=== PATIENT | female | born 1965 | race American Indian/Alaskan Native ===

== ENCOUNTER 2017-01-15 09:08 | Emergency (ER) | payer MEDICARE, OTHER ==
[2017-01-15] MEDS ORDERED: Apap-Butalbital-Caffeine 325-50-40mg Tab ONE (11:27)
== END 2017-01-15 11:40 | disposition home or self-care (01) ==
LOC: C.ER 09:08
DX: R51 Headache (principal)

== ENCOUNTER 2017-03-16 15:42 | Emergency (ER) | payer MEDICARE, OTHER ==
[2017-03-16 15:56] VITALS: BP 130/86; PULSE 81; RESP 20; TEMP 97.6; O2SAT 100
--- NOTE | 2017-03-16 16:44 | C.PDOC ---
History Of Present Illness 51 y/o female, with past medial history of seizure taking Keppra, and Depakote, presents to the emergency department for evaluation of episode of 2 witnessed seizures at her PMD office. States that she is complaint with her meds. Notes last seizure episode was 2 months ago. At bedside, pt denies any complaints, and states she feels "great". Pt denies getting any type of blood work, or imaging done here in the ER and would like to be discharged home. Time Seen by Provider: 03/16/17 15:52 Chief Complaint (Nursing): Seizure History Per: Patient History/Exam Limitations: no limitations Number Of Seizures: Multiple (2) Length Of Seizures (Duration): Unknown Severity: None Pain Scale Rating Of: 0 Additional History Per: EMS (blood sugar level was normal) Past Medical History Reviewed: Historical Data, Nursing Documentation, Vital Signs Vital Signs: Last Vital Signs Temp 97.6 F 03/16/17 15:48 Pulse 81 03/16/17 15:48 Resp 20 03/16/17 15:48 BP 130/86 03/16/17 15:48 Pulse Ox 100 03/16/17 16:59 - Medical History PMH: HTN, Seizures, TIA Denies: Chronic Kidney Disease Surgical History: Appendectomy, Tonsillectomy - [facility] Procedures INSERTION OF INFUSION DEV INTO SUP VENA CAVA, PERC APPROACH (10/23/15) Family History: States: Unknown Family Hx - Social History Hx Tobacco Use: No Hx Alcohol Use: No Hx Substance Use: No - Immunization History Hx Tetanus Toxoid Vaccination: No Hx Influenza Vaccination: No Hx Pneumococcal Vaccination: No Review Of Systems Except As Marked, All Systems Reviewed And Found Negative. Constitutional: Negative for: Fever, Chills Cardiovascular: Negative for: Chest Pain, Palpitations Respiratory: Negative for: Cough, Shortness of Breath Gastrointestinal: Negative for: Nausea, Vomiting, Abdominal Pain Neurological: Positive for: Seizures. Negative for: Weakness, Numbness, Headache, Dizziness Physical Exam - Physical Exam Appears: Non-toxic, No Acute Distress Skin: Normal Color, Warm, Dry Head: Atraumatic, Normacephalic Eye(s): bilateral: Normal Inspection Neck: Normal ROM, Supple Chest: Symmetrical Cardiovascular: Rhythm Regular, No Murmur Respiratory: Normal Breath Sounds, No Rales, No Rhonchi, No Wheezing Extremity: No Deformity, Other (chronic left side 4/5 weakness) Extremity: Bilateral: Atraumatic Neurological/Psych: Oriented x3, Normal Speech, Normal Cognition ED Course And Treatment O2 Sat by Pulse Oximetry: 100 Pulse Ox Interpretation: Normal Medical Decision Making Medical Decision Making: The patient declines to have further medical evaluation and treatment and wishes to leave the Emergency Department. This action is against my medical advice to the patient, and with informed refusal. The patient was told that evaluation and treatment are necessary and a full explanation of the rationale was given. The risks of leaving were explained to the patient and include, but are not limited to, worsening of known or currently unknown conditions, permanent disability and from undiagnosed or untreated conditions The patient has the capacity to make this informed decision and understands the clinical situation and my explanation of the risks of leaving. The patient voluntarily accepts these risks, and a signed AMA form documenting our conversation was obtained. The patient was given the opportunity to ask questions and reconsider. The patient was encouraged to return to the Emergency Department at any time for further care. pt on arrival, oriented x 3, at [facility]. refues labs, imaging, requesting immediate d/c. discussed risks, pt understands. signs ama Disposition - Disposition Referrals: Counts Include [facility] [Outside] [facility] [Outside] Gloria Augustin MD [Staff Provider] - Disposition: AGAINST MEDICAL ADVICE Disposition Time: 04:00 Condition: GOOD Additional Instructions: you are refusing workup in the er. you are able to return at any time with any concern. do not drive, avoid heights, or heavy machinery, or any situation that could be harmful with a seizure Instructions: Against Medical Advice (ED), Recurrent Seizures in Adults (ED) - Clinical Impression Clinical Impression: Seizure - Scribe Statement The provider has reviewed the documentation as recorded by the Phuongibe Dann Hassan All medical record entries made by the Phuongibe were at my direction and personally dictated by me. I have reviewed the chart and agree that the record accurately reflects my personal performance of the history, physical exam, medical decision making, and the department course for this patient. I have also personally directed, reviewed, and agree with the discharge instructions and disposition.
== END 2017-03-16 16:19 | disposition left against medical advice (07) ==
LOC: C.ER 15:42
DX: G40.909 Epilepsy, unspecified, not intractable, without status epilepticus (principal)

== ENCOUNTER 2017-03-30 15:36 | Emergency (ER) | payer MEDICARE, OTHER ==
[2017-03-30 15:43] VITALS: BP 148/80; PULSE 102; RESP 12; TEMP 97.3; O2SAT 100
--- NOTE | 2017-03-30 15:52 | C.PDOC ---
History Of Present Illness 52 y/o female with Hx of Seizures brought to ED by Rapid Response from OP MRI for seizure episode. Patient states she did not take her seizure medicine this morning for unknown reason. At ED patient is sedated but responsive. No other complaints at this time. Chief Complaint (Nursing): Seizure History Per: Patient History/Exam Limitations: no limitations Recent Seizure Activity Began: Just Before Arrival Number Of Seizures: One Past Medical History Reviewed: Historical Data, Nursing Documentation, Vital Signs Vital Signs: Last Vital Signs Temp 97.3 F L 03/30/17 16:07 Pulse 102 H 03/30/17 16:07 Resp 12 03/30/17 16:07 BP 148/80 03/30/17 16:07 Pulse Ox 100 03/30/17 15:55 - Medical History PMH: HTN, Seizures, TIA Surgical History: Appendectomy, Tonsillectomy - [facility] Procedures INSERTION OF INFUSION DEV INTO SUP VENA CAVA, PERC APPROACH (10/23/15) Family History: States: Unknown Family Hx - Social History Hx Tobacco Use: No Hx Alcohol Use: No Hx Substance Use: No - Immunization History Hx Tetanus Toxoid Vaccination: No Hx Influenza Vaccination: No Hx Pneumococcal Vaccination: No Review Of Systems Except As Marked, All Systems Reviewed And Found Negative. Constitutional: Negative for: Fever, Chills Gastrointestinal: Negative for: Nausea, Vomiting, Diarrhea Skin: Negative for: Rash Neurological: Positive for: Seizures Physical Exam - Physical Exam Appears: In Acute Distress Skin: Warm Head: Atraumatic, Normacephalic Eye(s): bilateral: EOMI Oral Mucosa: Moist Gastrointestinal/Abdominal: Soft, No Tenderness, No Guarding, No Rebound, Other (Obese abdomen) Neurological/Psych: Oriented x3, Normal Speech, Normal Cognition ED Course And Treatment - Laboratory Results Result Diagrams: 03/30/17 16:21 03/30/17 16:21 Lab Interpretation: Abnormal (dilantin level neg) O2 Sat by Pulse Oximetry: 100 (RA) Pulse Ox Interpretation: Normal Progress Note: 1615: pt got up from strecher wide awake and immediatly began clothing herself, wanting to leave ED immediately Disposition Doctor Will See Patient In The: Office Counseled Patient/Family Regarding: Studies Performed, Diagnosis - Disposition Disposition: AGAINST MEDICAL ADVICE Disposition Time: 16:00 Condition: GOOD Forms: [employer] Messaging (Chinese) - Clinical Impression Clinical Impression: Seizure disorder - Scribe Statement The provider has reviewed the documentation as recorded by the Phuongibcarroll Sprague All medical record entries made by the Chauncey were at my direction and personally dictated by me. I have reviewed the chart and agree that the record accurately reflects my personal performance of the history, physical exam, medical decision making, and the department course for this patient. I have also personally directed, reviewed, and agree with the discharge instructions and disposition.
--- NOTE | 2017-03-30 16:07 | PCM.RRTMUL ---
TRACK TEMPLATE MAKER Nurses Assessment - Situation TRACK TEMPLATE MAKER Responder Arrival Time:: 03:39 TRACK TEMPLATE MAKER Reason for Call: Change in Mental Status - Vital Signs Blood Pressure:: 148/80 Pulse Rate:: 102 Respiratory Rate:: 12 Temperature:: 97.3 F I.Reason for TRACK TEMPLATE MAKER - A) Acute Change in Patient: (Select all that apply): Acute change in mental status - Constitutional Appears: Other (altered) - Head Head Exam: ATRAUMATIC, NORMAL INSPECTION - Eyes Eye Exam: EOMI - Respiratory Exam Respiratory Exam: Clear to Ausculation Bilateral, NORMAL BREATHING PATTERN - Cardiovascular Exam Cardiovascular Exam: REGULAR RHYTHM, +S1, +S2 - GI/Abdominal Exam GI & Abdominal Exam: Soft, Normal Bowel Sounds. absent: Distended, Firm, Guarding, Tenderness - Neurological Exam Neurological Exam: Awake. absent: Alert, Oriented x3 Plan - B. Assessment of Findings&Treatment Plan TRACK TEMPLATE MAKER called in MRI due to altered mental status and "seizure". Patent was having an MRI of the shoulder when a rapid was called for seizure. Patient was altered and confused but was able to speak. Per family member with patient stated she has a history of seizures but did not take her medications today. She was transferred to the ED immediately for further management. Dr. Chung took over care.
[2017-03-30 16:28] LABS: BASO % 0.4 % (0.0-2.0); EOS # 0.2 K/uL (0.0-0.7); EOS % 2.9 % (0.0-4.0); HEMOGLOBIN 12.9 g/dL (11.0-16.0); LYMPH # 2.2 K/uL (1.0-4.3); LYMPH % 35.7 % (20.0-40.0); MEAN CORPUSCULAR HEMOGLOBIN 28.6 pg (27.0-31.0); MEAN CORPUSCULAR HGB CONC 33.1 g/dL (33.0-37.0); MEAN PLATELET VOLUME 8.8 fL (7.2-11.7); MONO # 0.7 K/uL (0.0-0.8); MONO % 11.8 % (0.0-10.0); NEUT % 49.2 % (50.0-75.0); NRBC % 0.1 % (0.0-2.0); RBC 4.51 Mil/uL (3.80-5.20); WHITE BLOOD COUNT 6.1 K/uL (4.8-10.8)
[2017-03-30 16:30] LABS: MEAN CELL VOLUME 86.3 fL (81.0-99.0)
[2017-03-30 16:35] LABS: ALBUMIN 4.5 g/dL (3.5-5.0)
[2017-03-30 16:38] LABS: ALB/GLOB RATIO 1.1 (1.0-2.1); AST/SGOT 36 U/L (14-36); GFR AFRICAN-AMERICAN > 60; GFR NON-AFRICAN AMERICAN > 60
[2017-03-30 16:39] LABS: ALT/SGPT 8 U/L (9-52); BLOOD UREA NITROGEN 18 mg/dL (7-17); CALCIUM 9.2 mg/dl (8.6-10.4)
--- NOTE | 2017-03-31 19:24 | CARD ---
APPROVED REPORT EKG Measurement Heart [id number] <Conclusion> Normal sinus rhythm Septal infarct, age undetermined Abnormal ECG
== END 2017-03-30 16:19 | disposition left against medical advice (07) ==
LOC: C.ER 15:36
DX: G40.909 Epilepsy, unspecified, not intractable, without status epilepticus (principal)
CPT/HCPCS: 80053; 80185; 85025; 93005; 99285; G0480

== ENCOUNTER 2017-11-25 17:19 | Observation (INO) | payer MEDICARE, OTHER ==
[2017-11-25] MEDS ORDERED: Sodium Chloride 0.9% 1,000 ML IV ONE ×2 (17:56→19:56)
[2017-11-25 18:28] LABS: ALB/GLOB RATIO 1.1 (1.0-2.1); ALBUMIN 4.7 g/dL (3.5-5.0); CALCIUM 7.4 mg/dl (8.6-10.4); GFR AFRICAN-AMERICAN > 60; GFR NON-AFRICAN AMERICAN > 60
--- NOTE | 2017-11-25 18:32 | CT ---
PROCEDURE: CT HEAD WITHOUT CONTRAST. HISTORY: s/p seizure, left sided weakness/numbness. COMPARISON: Unenhanced head CT 10/24/2015 prior TECHNIQUE: Axial computed tomography images were obtained through the head/brain without intravenous contrast. Radiation dose: Total exam DLP = 749.28 mGy-cm. This CT exam was performed using one or more of the following dose reduction techniques: Automated exposure control, adjustment of the mA and/or kV according to patient size, and/or use of iterative reconstruction technique. FINDINGS: HEMORRHAGE: No intracranial hemorrhage. BRAIN: Normal knott-white matter differentiation and density are appreciated throughout the cerebrum and cerebellum with the brainstem appearing unremarkable as well. There is no mass effect. There is no suspicious extra-axial fluid collection and the midline brain anatomy appears diffusely unremarkable. VENTRICLES: Unremarkable. No hydrocephalus. CALVARIUM: No destructive bony lesion or displaced fracture identified including through the skullbase. PARANASAL SINUSES: Unremarkable as visualized. No significant inflammatory changes. MASTOID AIR CELLS: Unremarkable as visualized. No inflammatory changes. OTHER FINDINGS: None. IMPRESSION: Stable unremarkable unenhanced head CT as discussed above. Follow-up CT or MRI is available if clinically warranted.
[2017-11-25 18:44] LABS: ALT/SGPT 9 U/L (9-52); AST/SGOT 25 U/L (14-36); BLOOD UREA NITROGEN 22 mg/dL (7-17)
[2017-11-25 18:50] LABS: BASO % 0.3 % (0.0-2.0); EOS # 0.1 K/uL (0.0-0.7); EOS % 1.5 % (0.0-4.0); HEMOGLOBIN 8.5 g/dL (11.0-16.0); INR 1.5; LYMPH # 1.2 K/uL (1.0-4.3); LYMPH % 30.5 % (20.0-40.0); MEAN CELL VOLUME 86.3 fL (81.0-99.0); MEAN CORPUSCULAR HEMOGLOBIN 27.9 pg (27.0-31.0); MEAN CORPUSCULAR HGB CONC 32.4 g/dL (33.0-37.0); MEAN PLATELET VOLUME 8.8 fL (7.2-11.7); MONO # 0.5 K/uL (0.0-0.8); MONO % 12.5 % (0.0-10.0); NEUT # 2.1 K/uL (1.8-7.0); NEUT % 55.2 % (50.0-75.0); NRBC % 0.3 % (0.0-2.0); PROTHROMBIN TIME 16.5 SECONDS (9.7-12.2); RBC 3.03 Mil/uL (3.80-5.20); RED CELL DISTRIBUTION WIDTH 14.9 % (11.5-14.5); WHITE BLOOD COUNT 3.8 K/uL (4.8-10.8)
[2017-11-25 19:26] LABS: FREE T4 1.09 ng/dL (0.78-2.19)
[2017-11-25 19:44] LABS: SQUAMOUS EPITHIAL 4 /hpf (0-5); URINE BILIRUBIN NEGATIVE (NEGATIVE); URINE BLOOD 1+ (NEGATIVE); URINE CLARITY Hazy (Clear); URINE COLOR Yellow (YELLOW); URINE GLUCOSE (UA) NORMAL (Normal); URINE LEUKOCYTE ESTERASE NEG Leu/uL (Negative); URINE PROTEIN NEGATIVE (NEGATIVE); URINE UROBILINOGEN NORMAL mg/dL (0.2-1.0)
[2017-11-25] MEDS ORDERED: Divalproex 500 mg DR Tab PO STA (19:56)
[2017-11-25 20:00] LABS: BARBITURATES, UR NEGATIVE (NEGATIVE); BENZODIAZEPINES, UR NEGATIVE (NEGATIVE); OPIATES, UR NEGATIVE (NEGATIVE); PHENCYCLIDINE, UR NEGATIVE (NEGATIVE)
--- NOTE | 2017-11-25 20:27 | CP.PCM.HP ---
<Volodymyr Szymanskissatul Zhu - Last Filed: 11/25/17 22:48> History of Present Illness - History of Present Illness History of Present Illness: Code Status: Full Code If patient cannot make decisions patient would like sister Amy Ortiz to be contacted # [phone] CC: "Right eye droop" HPI: 52 year old female with past medical history of seizure disorder, HTN, thyroid nodules presents to the ER for right eye droop and left facial numbness. Patient states she noticed the right eye droop yesterday when her homemaker arrived between the hours of 1-4pm. She denies eye pain or eye discharge. She states the left facial numbness is only in the cheek and half of her lip area. She states it feels like she just went to the dentist. She states this has never occurred before. She states the left sided numbness started today in the afternoon. She states she was told she had a seizure on the way to the hospital in the ambulance. Her most recent seizure prior was last Thursday. She states she does take her medications daily. She also states she has been feeling short of breath for about 2 months. She spoke to her PMD and patient states it may be due to her thyroid nodules. She does not use pillows to sleep and she can sleep flat without a distress. She states when she goes up the stairs she has to stop half way to catch her breath. Patient denies chest pain, palpitations, headache, lightheadedness, dizziness, nausea or vomiting. PMD: Dr. Lm Romero Neurologist: Dr Gloria Augustin Cardio: Dr. 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 absent: Chills, Fever, Headache - EENT Eyes: absent: Blurred Vision - Cardiovascular Cardiovascular: Dyspnea. absent: Chest Pain, Palpitations, Pedal Edema - Respiratory Respiratory: Dyspnea, Dyspnea on Exertion. absent: Cough - Gastrointestinal Gastrointestinal: absent: Constipation, Diarrhea, Nausea, Vomiting - Genitourinary Genitourinary: absent: Dysuria - Musculoskeletal Musculoskeletal: Muscle Weakness, Numbness. absent: Tingling - Neurological Neurological: Numbness, Weakness. absent: Disequilibrium, Dizziness, Headaches , Loss of Vision Past Patient History - Infectious Disease Hx of Infectious Diseases: None - Past Medical History & Family History Past Medical History?: Yes - Past Social History Smoking Status: Never Smoked - CARDIAC Hx Hypertension: Yes - PULMONARY Hx Respiratory Disorders: No Other/Comment: "MASS IN THROAT" - NEUROLOGICAL Hx Seizures: Yes - HEENT Hx HEENT Problems: No - RENAL Hx Chronic Kidney Disease: No - HEMATOLOGICAL/ONCOLOGICAL Hx Blood Transfusions: No - INTEGUMENTARY Hx Dermatological Problems: No - MUSCULOSKELETAL/RHEUMATOLOGICAL Hx Falls: Yes - GASTROINTESTINAL Hx Gastrointestinal Disorders: No - GENITOURINARY/GYNECOLOGICAL Hx Genitourinary Disorders: No - PSYCHIATRIC Hx Psychophysiologic Disorder: No Hx Substance Use: No - SURGICAL HISTORY Hx Appendectomy: Yes Hx Hysterectomy: Yes Hx Tonsillectomy: Yes - ANESTHESIA Hx Anesthesia: Yes Hx Anesthesia Reactions: No Meds Allergies/Adverse Reactions: Allergies Allergy/AdvReac Type Severity Reaction Status Date / Time Iodinated Contrast- Oral and Allergy Verified 11/25/17 17:41 IV Dye metronidazole [From Flagyl] Allergy SWELLING Verified 11/25/17 17:41 iv dye Allergy Uncoded 11/25/17 17:41 Physical Exam - Constitutional Appears: No Acute Distress, Older Than Stated Age - Head Exam Head Exam: ATRAUMATIC, NORMAL INSPECTION - Eye Exam Eye Exam: EOMI, PERRL Pupil Exam: NORMAL ACCOMODATION Additional comments: Right eye droop - ENT Exam ENT Exam: Mucous Membranes Moist - Neck Exam Neck exam: Positive for: Thyromegaly (thryroid nodules ). Negative for: Tenderness - Respiratory Exam Respiratory Exam: Clear to Auscultation Bilateral, NORMAL BREATHING PATTERN. absent: Rales, Rhonchi, Wheezes, Stridor - Cardiovascular Exam Cardiovascular Exam: REGULAR RHYTHM, RRR, +S1, +S2. absent: JVD - GI/Abdominal Exam GI & Abdominal Exam: Normal Bowel Sounds, Soft. absent: Tenderness - Extremities Exam Extremities exam: Positive for: normal inspection. Negative for: pedal edema, tenderness - Neurological Exam Neurological exam: Alert, Normal Gait, Oriented x3 - Expanded Neurological Exam Expanded Patient oriented to: person, place, time Cranial nerves: EOM's Intact: Normal, Facial Sensation: Abnormal Left Sensory exam: Lower Extremity Light Touch: Normal, Upper Extremity Light Touch: Normal Neuro motor strength exam: Left Upper Extremity: 4, Right Upper Extremity: 5, Left Lower Extremity: 4, Right Lower Extremity: 5 Coma Scale Eye Opening: SPONTANEOUS Coma Scale Motor Response: OBEYS COMMANDS Coma Scale Verbal: Oriented Coma Scale Total: 15 - Psychiatric Exam Psychiatric exam: Normal Affect, Normal Mood - Skin Skin Exam: Dry, Intact, Normal Color Results - Vital Signs Recent Vital Signs: Last Vital Signs Temp 97.6 F 11/25/17 17:31 Pulse 92 H 11/25/17 19:25 Resp 18 11/25/17 19:25 BP 137/98 H 11/25/17 19:25 Pulse Ox 100 11/25/17 19:25 - Labs Result Diagrams: 11/25/17 18:40 11/25/17 18:06 Labs: Laboratory Results - last 24 hr 11/25/17 11/25/17 11/25/17 18:06 18:06 18:06 WBC RBC Hgb Hct MCV MCH MCHC RDW Plt Count MPV Neut % (Auto) Lymph % (Auto) Woodward % (Auto) Eos % (Auto) Baso % (Auto) Neut # (Auto) Lymph # (Auto) Woodward # (Auto) Eos # (Auto) Baso # (Auto) PT INR APTT Sodium 144 Potassium 5.4 H Chloride 102 Carbon Dioxide 25 Anion Gap 23 H BUN 22 H Creatinine 0.5 L Est GFR ( Amer) > 60 Est GFR (Non-Af Amer) > 60 Random Glucose 95 Calcium 7.4 L Magnesium 2.0 Total Bilirubin 0.6 AST 25 ALT 9 D Alkaline Phosphatase 87 Troponin I < 0.0120 Total Protein 8.8 H Albumin 4.7 Globulin 4.1 H Albumin/Globulin Ratio 1.1 Free T4 1.09 TSH 3rd Generation 0.57 Urine Color Urine Clarity Urine pH Ur Specific Harriet Urine Protein Urine Glucose (UA) Urine Ketones Urine Blood Urine Nitrate Urine Bilirubin Urine Urobilinogen Ur Leukocyte Esterase Urine WBC (Auto) Urine RBC (Auto) Ur Squamous Epith Cells Urine Opiates Screen Urine Methadone Screen Ur Barbiturates Screen Valproic Acid 44.4 L Ur Phencyclidine Scrn Ur Amphetamines Screen U Benzodiazepines Scrn U Oth Cocaine Metabols U Cannabinoids Screen Alcohol, Quantitative < 10 11/25/17 11/25/17 11/25/17 18:40 18:40 19:38 WBC 3.8 L RBC 3.03 L Hgb 8.5 L D Hct 26.1 L MCV 86.3 MCH 27.9 MCHC 32.4 L RDW 14.9 H Plt Count 140 D MPV 8.8 Neut % (Auto) 55.2 Lymph % (Auto) 30.5 Woodward % (Auto) 12.5 H Eos % (Auto) 1.5 Baso % (Auto) 0.3 Neut # (Auto) 2.1 Lymph # (Auto) 1.2 Woodward # (Auto) 0.5 Eos # (Auto) 0.1 Baso # (Auto) 0.0 PT 16.5 H INR 1.5 APTT 33 Sodium Potassium Chloride Carbon Dioxide Anion Gap BUN Creatinine Est GFR ( Amer) Est GFR (Non-Af Amer) Random Glucose Calcium Magnesium Total Bilirubin AST ALT Alkaline Phosphatase Troponin I Total Protein Albumin Globulin Albumin/Globulin Ratio Free T4 TSH 3rd Generation Urine Color Yellow Urine Clarity Hazy Urine pH 6.0 Ur Specific Harriet 1.015 Urine Protein Negative Urine Glucose (UA) Normal Urine Ketones Trace Urine Blood 1+ H Urine Nitrate Negative Urine Bilirubin Negative Urine Urobilinogen Normal Ur Leukocyte Esterase Neg Urine WBC (Auto) 1 Urine RBC (Auto) 5 H Ur Squamous Epith Cells 4 Urine Opiates Screen Urine Methadone Screen Ur Barbiturates Screen Valproic Acid Ur Phencyclidine Scrn Ur Amphetamines Screen U Benzodiazepines Scrn U Oth Cocaine Metabols U Cannabinoids Screen Alcohol, Quantitative 11/25/17 19:38 WBC RBC Hgb Hct MCV MCH MCHC RDW Plt Count MPV Neut % (Auto) Lymph % (Auto) Woodward % (Auto) Eos % (Auto) Baso % (Auto) Neut # (Auto) Lymph # (Auto) Woodward # (Auto) Eos # (Auto) Baso # (Auto) PT INR APTT Sodium Potassium Chloride Carbon Dioxide Anion Gap BUN Creatinine Est GFR ( Amer) Est GFR (Non-Af Amer) Random Glucose Calcium Magnesium Total Bilirubin AST ALT Alkaline Phosphatase Troponin I Total Protein Albumin Globulin Albumin/Globulin Ratio Free T4 TSH 3rd Generation Urine Color Urine Clarity Urine pH Ur Specific Harriet Urine Protein Urine Glucose (UA) Urine Ketones Urine Blood Urine Nitrate Urine Bilirubin Urine Urobilinogen Ur Leukocyte Esterase Urine WBC (Auto) Urine RBC (Auto) Ur Squamous Epith Cells Urine Opiates Screen Negative Urine Methadone Screen Negative Ur Barbiturates Screen Negative Valproic Acid Ur Phencyclidine Scrn Negative Ur Amphetamines Screen Negative U Benzodiazepines Scrn Negative U Oth Cocaine Metabols Negative U Cannabinoids Screen Negative Alcohol, Quantitative Assessment & Plan - Assessment and Plan (Free Text) Assessment: 1.) Right Eye droop - Neuro Consult: Dr. Augustin - Neuro checks - Head CT: Stable unremarkable unenhanced head CT as discussed above. Follow- up CT or MRI is available if clinically warranted. - f/u brain MRI 2.) Chad's Palsy s/p Seizure - Decreased strength left upper and lower extremities - PT/OT 3.) History of Seizure Disorder - Neuro Consult: Dr. Augustin - Depakote 750mg bid - Keppra 500mg bid 4.) Shortness of breath - f/u Chest Xray - EKG: NSR - ECHO (10/24/15): EF >70% - f/u ECHO 5.) History of Thyroid Nodules - TSH .57; Free T4 1.09 6.) History of HTN - Continue Norvasc 5mg daily - Continue Losartan/HCTZ 50/12.5 daily - TSH .57; Free T4 1.09 7. Leukopenia - WBC: 3.9 - f/u HIV - f/u Hepatitis panel 8.) Anemia - H/H: 8.5/26.1 - f/u iron studies 9.) Prophylaxis - SCDs - PT/OT Case discussed with Dr. Elizabeth Szymanski PGY-1 <Raul Johnson - Last Filed: 11/26/17 06:23> Results - Vital Signs Recent Vital Signs: Last Vital Signs Temp 98.0 F 11/25/17 23:00 Pulse 115 H 11/25/17 23:30 Resp 20 11/25/17 23:00 BP 130/86 11/25/17 23:00 Pulse Ox 98 11/25/17 23:00 - Labs Result Diagrams: 11/25/17 18:40 11/25/17 18:06 Labs: Laboratory Results - last 24 hr 11/25/17 11/25/17 11/25/17 17:35 18:06 18:06 WBC RBC Hgb Hct MCV MCH MCHC RDW Plt Count MPV Neut % (Auto) Lymph % (Auto) Woodward % (Auto) Eos % (Auto) Baso % (Auto) Neut # (Auto) Lymph # (Auto) Woodward # (Auto) Eos # (Auto) Baso # (Auto) PT INR APTT Sodium 144 Potassium 5.4 H Chloride 102 Carbon Dioxide 25 Anion Gap 23 H BUN 22 H Creatinine 0.5 L Est GFR ( Amer) > 60 Est GFR (Non-Af Amer) > 60 POC Glucose (mg/dL) 86 Random Glucose 95 Calcium 7.4 L Magnesium 2.0 Total Bilirubin 0.6 AST 25 ALT 9 D Alkaline Phosphatase 87 Troponin I < 0.0120 Total Protein 8.8 H Albumin 4.7 Globulin 4.1 H Albumin/Globulin Ratio 1.1 Free T4 1.09 TSH 3rd Generation 0.57 Urine Color Urine Clarity Urine pH Ur Specific Harriet Urine Protein Urine Glucose (UA) Urine Ketones Urine Blood Urine Nitrate Urine Bilirubin Urine Urobilinogen Ur Leukocyte Esterase Urine WBC (Auto) Urine RBC (Auto) Ur Squamous Epith Cells Urine Opiates Screen Urine Methadone Screen Ur Barbiturates Screen Valproic Acid Ur Phencyclidine Scrn Ur Amphetamines Screen U Benzodiazepines Scrn U Oth Cocaine Metabols U Cannabinoids Screen Alcohol, Quantitative < 10 11/25/17 11/25/17 11/25/17 18:06 18:40 18:40 WBC 3.8 L RBC 3.03 L Hgb 8.5 L D Hct 26.1 L MCV 86.3 MCH 27.9 MCHC 32.4 L RDW 14.9 H Plt Count 140 D MPV 8.8 Neut % (Auto) 55.2 Lymph % (Auto) 30.5 Woodward % (Auto) 12.5 H Eos % (Auto) 1.5 Baso % (Auto) 0.3 Neut # (Auto) 2.1 Lymph # (Auto) 1.2 Woodward # (Auto) 0.5 Eos # (Auto) 0.1 Baso # (Auto) 0.0 PT 16.5 H INR 1.5 APTT 33 Sodium Potassium Chloride Carbon Dioxide Anion Gap BUN Creatinine Est GFR ( Amer) Est GFR (Non-Af Amer) POC Glucose (mg/dL) Random Glucose Calcium Magnesium Total Bilirubin AST ALT Alkaline Phosphatase Troponin I Total Protein Albumin Globulin Albumin/Globulin Ratio Free T4 TSH 3rd Generation Urine Color Urine Clarity Urine pH Ur Specific Harriet Urine Protein Urine Glucose (UA) Urine Ketones Urine Blood Urine Nitrate Urine Bilirubin Urine Urobilinogen Ur Leukocyte Esterase Urine WBC (Auto) Urine RBC (Auto) Ur Squamous Epith Cells Urine Opiates Screen Urine Methadone Screen Ur Barbiturates Screen Valproic Acid 44.4 L Ur Phencyclidine Scrn Ur Amphetamines Screen U Benzodiazepines Scrn U Oth Cocaine Metabols U Cannabinoids Screen Alcohol, Quantitative 11/25/17 11/25/17 19:38 19:38 WBC RBC Hgb Hct MCV MCH MCHC RDW Plt Count MPV Neut % (Auto) Lymph % (Auto) Woodward % (Auto) Eos % (Auto) Baso % (Auto) Neut # (Auto) Lymph # (Auto) Woodward # (Auto) Eos # (Auto) Baso # (Auto) PT INR APTT Sodium Potassium Chloride Carbon Dioxide Anion Gap BUN Creatinine Est GFR ( Amer) Est GFR (Non-Af Amer) POC Glucose (mg/dL) Random Glucose Calcium Magnesium Total Bilirubin AST ALT Alkaline Phosphatase Troponin I Total Protein Albumin Globulin Albumin/Globulin Ratio Free T4 TSH 3rd Generation Urine Color Yellow Urine Clarity Hazy Urine pH 6.0 Ur Specific Harriet 1.015 Urine Protein Negative Urine Glucose (UA) Normal Urine Ketones Trace Urine Blood 1+ H Urine Nitrate Negative Urine Bilirubin Negative Urine Urobilinogen Normal Ur Leukocyte Esterase Neg Urine WBC (Auto) 1 Urine RBC (Auto) 5 H Ur Squamous Epith Cells 4 Urine Opiates Screen Negative Urine Methadone Screen Negative Ur Barbiturates Screen Negative Valproic Acid Ur Phencyclidine Scrn Negative Ur Amphetamines Screen Negative U Benzodiazepines Scrn Negative U Oth Cocaine Metabols Negative U Cannabinoids Screen Negative Alcohol, Quantitative Assessment & Plan - Date & Time Date: 11/26/17 (I have seen and examined the patient. I agree with the findings and plan of care as documented by Dr. Szymanski. Patient with history of seizure and now with Chad's paralysis. Consult to Dr. Augustin. MRI brain in AM. PT/OT. Fall precautions. Continue home meds. Monitor for acute changes.) Time: 06:21 Attending/Attestation - Attestation I have personally seen and examined this patient.: Yes I have fully participated in the care of the patient.: Yes I have reviewed all pertinent clinical information: Yes
--- NOTE | 2017-11-25 20:38 | C.PDOC ---
History Of Present Illness Pt states that she was feeling left facial numbness/tingling, EMS were contacted and when they arrived pt had a generalized seizure. After seizure, pt is still having left facial numbness, but also LUE weakness. Pt states that she did not take her Depakote this morning. Time Seen by Provider: 11/25/17 17:44 Chief Complaint (Nursing): Seizure History Per: Patient, EMS Recent Seizure Activity Began: Just Before Arrival Number Of Seizures: One Length Of Seizures (Duration): Minutes Quality Of Seizure: Generalized Precipitating Factor(s): Missed Dose Of Anti-seizure Medication Post-ictal Period: Yes Severity: Moderate Additional History Per: Prior Records Past Medical History Reviewed: Historical Data, Nursing Documentation, Vital Signs Vital Signs: Last Vital Signs Temp 97.6 F 11/25/17 17:31 Pulse 92 H 11/25/17 19:25 Resp 18 11/25/17 19:25 BP 137/98 H 11/25/17 19:25 Pulse Ox 100 11/25/17 19:25 - Medical History PMH: CHF, HTN, Seizures, TIA Surgical History: Appendectomy, Tonsillectomy - [facility] Procedures INSERTION OF INFUSION DEV INTO SUP VENA CAVA, PERC APPROACH (10/23/15) Family History: States: Unknown Family Hx - Social History Hx Tobacco Use: No Hx Alcohol Use: No Hx Substance Use: No - Immunization History Hx Tetanus Toxoid Vaccination: No Hx Influenza Vaccination: No Hx Pneumococcal Vaccination: No Review Of Systems Except As Marked, All Systems Reviewed And Found Negative. Constitutional: Negative for: Fever Cardiovascular: Negative for: Chest Pain Respiratory: Negative for: Shortness of Breath Gastrointestinal: Negative for: Vomiting, Abdominal Pain, Melena, Hematochezia, Hematemesis Genitourinary: Negative for: Vaginal Bleeding Musculoskeletal: Negative for: Neck Pain Skin: Negative for: Rash Neurological: Positive for: Weakness (left arm), Numbness (left face), Seizures Physical Exam - Physical Exam Skin: Normal Color, Warm, Dry, No Rash Head: Atraumatic, Normacephalic Eye(s): bilateral: PERRL, EOMI, right: Other (ptosis) Neck: Normal ROM, Supple Cardiovascular: Rhythm Regular Respiratory: Normal Breath Sounds, No Accessory Muscle Use Gastrointestinal/Abdominal: Soft, No Tenderness Extremity: Normal ROM, No Deformity Neurological/Psych: Oriented x3, No Normal Motor (LUE weakness compared to right ), No Normal Sensation (decreased sensation of left face compared to right) ED Course And Treatment - Laboratory Results Result Diagrams: 11/25/17 18:40 11/25/17 18:06 Lab Interpretation: Abnormal Interpretation Of Abnormal: Subtherapeutic valproic acid. Anemia. Elevated BUN. ECG: Interpreted By Me, Viewed By Me ECG Rhythm: Sinus Rhythm, Nonspecific Changes ECG Interpretation: No Acute Changes Rate From EC O2 Sat by Pulse Oximetry: 100 Pulse Ox Interpretation: Normal - CT Scan/US CT head Other Rad Studies (CT/US): Read By Radiologist, Radiology Report Reviewed CT/US Interpretation: IMPRESSION: Stable unremarkable unenhanced head CT as discussed above. Follow-up CT or MRI is available if clinically warranted. Progress Note: Pt's LUE weakness has mostly improved, however pt still c/o left facial numbness. Reassessment Condition: Improved - Physician Consult Information Physician Contacted: Gloria Augustin (Neuro) Outcome Of Conversation: He recommended increasing Depakote dose to 750mg bid and keeping pt for observation in the hospital until all deficits have resolved. Progress - Interventions Interventions:: Observation, Intravenous fluid - Data Reviewed Data Reviewed: Lab, Diagnostic imaging, EKG, Old records - Patient Status Patient status: Partially improved - Continuity of Care Discussed patient case with:: Patient, ED Nurse, Covering for PMD Discussed pt. case with income tax consultant/specialty: Neurology Disposition Discussed With DrPamela: Raul Johnson Comment: He accepted pt on hospitalist service. Doctor Will See Patient In The: Hospital Counseled Patient/Family Regarding: Studies Performed, Diagnosis - Disposition Disposition: HOSPITALIZED Disposition Time: 20:44 Condition: GUARDED - Clinical Impression Clinical Impression: Chad's paralysis (postepileptic), Seizure
[2017-11-26 06:46] LABS: IRON 55 ug/dL (37-170)
[2017-11-26 06:53] LABS: ALB/GLOB RATIO 1.3 (1.0-2.1); ALBUMIN 4.2 g/dL (3.5-5.0); ALT/SGPT 10 U/L (9-52); AST/SGOT 22 U/L (14-36); BLOOD UREA NITROGEN 14 mg/dL (7-17); CALCIUM 9.1 mg/dl (8.6-10.4); GFR AFRICAN-AMERICAN > 60; GFR NON-AFRICAN AMERICAN > 60
[2017-11-26 06:55] LABS: % IRON SATURATION 19 (20-55); TOTAL IRON BINDING CAPACITY 297 ug/dL (250-450)
--- NOTE | 2017-11-26 07:11 | RAD ---
HISTORY: SOB COMPARISON: Chest radiographs 09/17/2017. TECHNIQUE: Chest PA and lateral FINDINGS: LUNGS: No active pulmonary disease. PLEURA: No significant pleural effusion identified. No pneumothorax apparent. CARDIOVASCULAR: Normal. OSSEOUS STRUCTURES: No significant abnormalities. VISUALIZED UPPER ABDOMEN: Normal. OTHER FINDINGS: None. IMPRESSION: No interval acute cardiopulmonary disease appreciated.
[2017-11-26 07:14] LABS: BASO % 0.4 % (0.0-2.0); EOS # 0.1 K/uL (0.0-0.7); EOS % 2.1 % (0.0-4.0); LYMPH # 2.4 K/uL (1.0-4.3); LYMPH % 38.7 % (20.0-40.0); MEAN CELL VOLUME 84.5 fL (81.0-99.0); MEAN CORPUSCULAR HEMOGLOBIN 28.4 pg (27.0-31.0); MEAN CORPUSCULAR HGB CONC 33.6 g/dL (33.0-37.0); MEAN PLATELET VOLUME 9.3 fL (7.2-11.7); MONO # 0.6 K/uL (0.0-0.8); MONO % 10.1 % (0.0-10.0); NEUT % 48.7 % (50.0-75.0); NRBC % 0.3 % (0.0-2.0); RBC 4.25 Mil/uL (3.80-5.20); RED CELL DISTRIBUTION WIDTH 15.2 % (11.5-14.5); WHITE BLOOD COUNT 6.2 K/uL (4.8-10.8)
[2017-11-26 07:20] LABS: HEPATITIS B SURFACE AG Negative (NEGATIVE)
[2017-11-26 07:24] LABS: HEMOGLOBIN 12.1 g/dL (11.0-16.0)
[2017-11-26 07:25] LABS: HEPATITIS A IGM NEGATIVE (NEGATIVE); HEPATITIS B CORE AB NEGATIVE (NEGATIVE)
[2017-11-26 07:37] LABS: HEPATITIS C ANTIBODY NEGATIVE (NEGATIVE)
[2017-11-26] MEDS ORDERED: Divalproex 250 mg DR Tab PO SCH (10:00)
[2017-11-26 14:26] LABS: CK-MB 0.68 ng/mL (0.0-3.38)
--- NOTE | 2017-11-26 15:02 | CARD ---
APPROVED REPORT EKG Measurement Heart [id number] <Conclusion> Normal sinus rhythm Septal infarct, age undetermined Abnormal ECG
[2017-11-26] MEDS ORDERED: Potassium Chloride 20 mEq ER Tab PO ONE (16:17)
--- NOTE | 2017-11-26 17:18 | MRI ---
PROCEDURE: MRA brain dated in 11/26/2017 HISTORY: History of seizure disorder, right eye droop COMPARISON: Comparison made with prior CT scan of the brain dated 11/25/2017. TECHNIQUE: Multiplanar, multisequence MR images of the brain were obtained without intravenous contrast enhancement. FINDINGS: HEMORRHAGE: No acute parenchymal, subarachnoid or extra-axial hemorrhage. No evidence hemosiderin deposition identified on gradient echo weighted sequence. DWI: No evidence of an acute or early subacute infarction seen on diffusion imaging. . BRAIN PARENCHYMA: Mild diffuse/confluent chronic prolonged T2 signal changes within the periventricular white matter likely represent minor chronic sequela of small vessel disease. Additionally, there are multiple tiny focal areas of increased T2 signal scattered about the deep and subcortical white matter of both cerebral hemispheres to represent chronic sequela of small vessel disease. Differential diagnosis would include chronic sequela of migraine headaches, old trauma or post infectious/inflammatory etiologies. The atypical presentation of a demyelinating disease process less likely though not completely excluded. No evidence of mesial temporal sclerosis. VENTRICLES: No obstructive hydrocephalus. CRANIUM: Calvarium appears grossly unremarkable. ORBITS: The orbits and contents unremarkable though there is dysconjugate gaze. PARANASAL SINUSES/MASTOIDS: Clear VASCULAR SYSTEM: Visualized major vascular flow voids at skull base patent. OTHER FINDINGS: None. IMPRESSION: No acute intracranial hemorrhage or infarct. Mild chronic appearing white matter ischemic changes as described. No evidence to suggest mesial temporal sclerosis.
[2017-11-26] MEDS: Divalproex 500 mg ER Tab PO SCH (17:24)
--- NOTE | 2017-11-26 17:25 | CP.PCM.PN ---
<Quincy Ely - Last Filed: 11/26/17 17:15> Subjective - Date & Time of Evaluation Date of Evaluation: 11/26/17 Time of Evaluation: 09:15 - Subjective Subjective: PGY1 Medicine Note for Dr. Luke Patient seen and examined at bedside this morning. Patient was resting comfortably in her bed. She stated she felt much better and would like to go home. She complained of a mild headache. Patient reported improving but mild numbness/tingling on her left cheek. Denies fevers, chills, nausea, vomiting, diarrhea, constipation, chest pain, shortness of breath or abdominal pain. Patient had CERTIFIED FRAUD EXAMINER this morning. Please see CERTIFIED FRAUD EXAMINER note for full detail. Objective - Vital Signs/Intake and Output Vital Signs (last 24 hours): Temp Pulse Resp BP Pulse Ox 97.3 F L 78 18 103/70 100 11/26/17 15:00 11/26/17 15:00 11/26/17 15:00 11/26/17 15:00 11/26/17 15:00 - Medications Medications: Current Medications Amlodipine Besylate (Norvasc) 5 mg PO DAILY [facility] Last Admin: 11/26/17 09:43 Dose: 5 mg Cyproheptadine HCl (Periactin) 4 mg PO DAILY [facility] Last Admin: 11/26/17 09:43 Dose: 4 mg Divalproex Sodium (Depakote Er) 1,000 mg PO BID [facility] Hydrochlorothiazide (Microzide) 12.5 mg PO DAILY [facility] Last Admin: 11/26/17 09:43 Dose: 12.5 mg Levetiracetam (Keppra) 500 mg PO BID [facility] Last Admin: 11/26/17 09:43 Dose: 500 mg Losartan Potassium (Cozaar) 50 mg PO DAILY [facility] Last Admin: 11/26/17 09:43 Dose: 50 mg - Labs Labs: 11/26/17 06:25 11/26/17 06:25 PT 16.5 SECONDS (9.7-12.2) H 11/25/17 18:40 INR 1.5 11/25/17 18:40 APTT 33 SECONDS (21-34) 11/25/17 18:40 - Constitutional Appears: Non-toxic, No Acute Distress - Head Exam Head Exam: ATRAUMATIC, NORMOCEPHALIC - Eye Exam Eye Exam: EOMI, Normal appearance Additional comments: Right eye droop resolved. - ENT Exam ENT Exam: Mucous Membranes Moist - Respiratory Exam Respiratory Exam: Clear to Ausculation Bilateral, NORMAL BREATHING PATTERN. absent: Accessory Muscle Use, Rales, Rhonchi, Wheezes, Respiratory Distress - Cardiovascular Exam Cardiovascular Exam: REGULAR RHYTHM, +S1, +S2. absent: JVD - GI/Abdominal Exam GI & Abdominal Exam: Soft, Normal Bowel Sounds. absent: Distended, Firm, Guarding, Rigid, Tenderness - Extremities Exam Extremities Exam: absent: Calf Tenderness, Pedal Edema - Neurological Exam Neurological Exam: Alert, Awake, Oriented x3 Neuro motor strength exam: Left Upper Extremity: 4, Right Upper Extremity: 5, Left Lower Extremity: 4, Right Lower Extremity: 5 Additional comments: decreased sensation of left cheek. - Psychiatric Exam Psychiatric exam: Normal Mood. absent: Normal Affect (patient appears very lethargic. slow speaking - "I am fine. I want to go home.") - Skin Skin Exam: Dry, Warm Assessment and Plan - Assessment and Plan (Free Text) Plan: Right Eye droop - Resolved - Neuro Consult: Dr. Augustin - Neuro checks - Head CT: Stable unremarkable unenhanced head CT as discussed above. Follow- up CT or MRI is available if clinically warranted. 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 - PT/OT History of Seizure Disorder - Neuro Consult: Dr. Augustin - Depakote 750mg BID --> increased to 1000mg BID - Keppra 500mg BID Shortness of breath - Chest Xray - No interval acute cardiopulmonary disease appreciated. - EKG: NSR - ECHO (10/24/15): EF >70% - f/u ECHO History of Thyroid Nodules - TSH .57; Free T4 1.09 History of HTN - Continue Norvasc 5mg daily - Continue Losartan/HCTZ 50/12.5 daily - TSH .57; Free T4 1.09 Leukopenia - WBC: 6.2 - HIV - Negative - Hepatitis panel - Negative Anemia - H/H: 12.136 - Iron 55; TIBC 297; % sat 19 Prophylaxis - SCDs - PT/OT DISPO: Awaiting results of Brain MRI. If no acute changes seen, patient to be discharged home, per Dr. Augustin. Case discussed with Dr. Marly Mathew Solis PGY1 <MarlyAlmaz V - Last Filed: 11/27/17 19:42> Objective - Vital Signs/Intake and Output Vital Signs (last 24 hours): Temp Pulse Resp BP Pulse Ox 98.4 F 97 H 20 113/82 98 11/27/17 08:22 11/27/17 08:22 11/27/17 08:22 11/27/17 08:22 11/27/17 08:26 - Labs Labs: 11/27/17 06:22 11/27/17 06:22 PT 16.5 SECONDS (9.7-12.2) H 11/25/17 18:40 INR 1.5 11/25/17 18:40 APTT 33 SECONDS (21-34) 11/25/17 18:40 Attending/Attestation - Attestation I have personally seen and examined this patient.: Yes I have fully participated in the care of the patient.: Yes I have reviewed all pertinent clinical information, including history, physical exam and plan: Yes Notes (Text): This is late computer entry for 11/26/17. Patient seen, examined, and case discussed with day-time resident. Patient seen with resident during morning rounds around 10:30AM. Patient's eye droop has resolved, speaking very clearly, very eager to go home. Patient appears packed. Patient was seen by her neurologist, Dr Augustin. Adjustments made to her Depakote to 1000mg PO BID, and recommended to get Brain MRI prior to discharge. patient was shortly after a CERTIFIED FRAUD EXAMINER in the echo lab, appeared lethargic, and felt warm, likely syncopal episode. patient came to quickly, responsive to name, lethargic but able to sip water and hold ice pack on her head. EKG did not show acute abnormality. LYDIA was negative. Spoke with patient's sister and updated her regarding patient's hospital course. 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 Augustin help appreciated * Head CT: Stable unremarkable unenhanced head CT as discussed above. Follow- up CT or MRI is available if clinically warranted. * f/u brain MRI * During rounds, eye droop has resolved. * Seizure Precautions * Old regiment adjusted to Depakote 750mg BID --> increased to Depakote 1000mg BID and Keppra 500mg BID * Low Valproic Acid 2) History of Known Seizure Disorder * Neuro Consult: Dr. Augustin help appreciated * Head CT: Stable unremarkable unenhanced head CT as discussed above. Follow- up CT or MRI is available if clinically warranted. * Old regiment adjusted to Depakote 750mg BID --> increased to Depakote 1000mg BID and Keppra 500mg BID * Low Valproic Acid 3) History of Thyroid Nodules * TSH .57; Free T4 1.09 * Patient is awaiting surgical evaluation as outpatient 4) History of Hypertension * Continue Norvasc 5mg PO daily * Continue Losartan/HCTZ 50/12.5mg PO daily 5) Leukopenia (resolved) * WBC: 6.2 * HIV - Negative * Hepatitis panel - Negative 6) Anemia (resolved) * likely due to lab error to given part if sample was hemolyzed when admitted * Hgb normalized. H/H: 12.1/36 7) Prophylaxis * SCDs * PT/OT eval * Chemical anticoagulation secondary to rule out bleed given drop of hemoglobin on admission * Patient is ambulatory
--- NOTE | 2017-11-26 17:43 | PCM.RRT ---
<SolisBrennanQuincy - Last Filed: 11/26/17 17:37> COUNSEL Nurses Assessment - Situation Date: 11/26/17 Time COUNSEL was called: 12:00 COUNSEL Responder Arrival Time:: 12:02 COUNSEL Location:: Cardiology COUNSEL Reason for Call: Change in Mental Status COUNSEL Called By: Other Disciplines - IV IV Inserted during COUNSEL?: No - Respiratory COUNSEL Delivery Method: Nasal Cannula @L/min Oxygen Flow Rate: 3 Received Nebulizer Treatments: No Was the Patient Ventilated with Bag/Mask 100% O2?: No Secretions Suctioned?: No Was the Patient Intubated?: No Was the Patient Placed on a Ventilator?: No - Diagnostic Test Ordered EKG: Yes Chest X-Ray: No CT Scan: No - Stat Labs Ordered COUNSEL Stat Labs Ordered: TROPONIN CPR started during COUNSEL?: No - Vital Signs Vital Signs: Rapid Response Vital Sign Blood Pressure 139/96 Pulse Rate 97 Respiratory Rate 16 Oxygen Saturation 100 - Time COUNSEL Ended Time COUNSEL Ended: 12:30 - Recommendations Notifications: Attending Physician I.Reason for COUNSEL - A) Acute Change in Patient: Subjective: Syncope during ECHO - Respiratory Oxygen Delivery Method: Nasal Cannula @L/min Oxygen Flow Rate: 3 - Constitutional Appears: Non-toxic, No Acute Distress - Head Head Exam: ATRAUMATIC, NORMOCEPHALIC - Eyes Eye Exam: EOMI - Respiratory Exam Respiratory Exam: Clear to Ausculation Bilateral, NORMAL BREATHING PATTERN. absent: Accessory Muscle Use, Rales, Rhonchi, Wheezes, Respiratory Distress - Cardiovascular Exam Cardiovascular Exam: REGULAR RHYTHM, +S1, +S2 - GI/Abdominal Exam GI & Abdominal Exam: Soft, Normal Bowel Sounds. absent: Distended, Firm, Guarding, Rigid, Tenderness - Neurological Exam Neurological Exam: Alert, Awake, Oriented x3 - Extremities Exam Extremities Exam: absent: Calf Tenderness, Pedal Edema Plan - Assessment of Findings&Treatment Plan Patient had a syncopal episode during an ECHO today. Upon entering the room, the patient responded to verbal stimuli. She was able to move all four extremities and was AAOx3. She appeared weak and lethargic but was not confused. She denied chest pain or shortness of breath. She had strong peripheral pulses throughout b/l. CN II-XII grossly intact. No facial droop or eye droop. No tonic-clonic movements noted by staff. LYDIA - negative EKG - No interval acute cardiopulmonary disease appreciated. <Almaz Luke V - Last Filed: 11/27/17 19:46> COUNSEL Nurses Assessment - Vital Signs Vital Signs: Rapid Response Vital Sign Blood Pressure 139/96 Pulse Rate 97 Respiratory Rate 16 Oxygen Saturation 100 Attending/Attestation - Attestation I have personally seen and examined this patient.: Yes I have fully participated in the care of the patient.: Yes I have reviewed all pertinent clinical information, including history, physical exam and plan: Yes Notes (Text): Patient was seen earlier prior to COUNSEL event; likely syncopal episode. Patient completing echocardiogram. EKG: no acute change and LYDIA: negative. Patient seen, re-examined with the resident. No acute neurologic change. Lethargic but responsive to name, commands, requesting water at bedside. Feels warm. Patient due for Brain MRI later in the day. Agree with the resident as written by the resident who is following this patient during her admission.
[2017-11-26] MEDS ORDERED: Sodium Chloride 0.9% 1,000 ML IV SCH (20:00)
--- NOTE | 2017-11-26 20:52 | CARD ---
APPROVED REPORT EXAM: Two-dimensional and M-mode echocardiogram with Doppler and color Doppler. Other Information Quality : GoodRhythm : INDICATION Dyspnea RISK FACTORS Hypertension Hyperlipidemia M-Mode DIMENSIONS Left Atrium (MM)2.58 (2.5-4.0cm)IVSd0.58 (0.7-1.1cm) Aortic Root2.89 (2.2-3.7cm)LVDd4.37 (4.0-5.6cm) Aortic Cusp Exc.1.73 (1.5-2.0cm)PWd0.82 (0.7-1.1cm) FS (%) 36 %LVDs2.79 (2.0-3.8cm) LVEF (%)66 (>50%) Aortic Valve AoV Peak Prgfcmmg959.2cm/Boris Peak GR.9mmHg Mitral Valve MV E Gghluiqz70.0cm/sMV A Fmoxnhhr01.4cm/sE/A ratio0.8 TDI E/Lateral E'0.0E/Medial E'0.0 Tricuspid Valve TR Peak Elzwmhou818pm/sTR Peak Gr.[id number] LEFT VENTRICLE The left ventricle is normal size. There is normal left ventricular wall thickness. Left ventricle systolic function is normal. The Ejection Fraction is 60-65%. There is normal LV segmental wall motion. Transmitral Doppler flow pattern is Grade I-abnormal relaxation pattern. There is no ventricular septal defect visualized. RIGHT VENTRICLE The right ventricle is normal size. The right ventricular systolic function is normal. ATRIA The left atrium size is normal. The right atrium size is normal. AORTIC VALVE The aortic valve is tri-cuspid. The aortic valve is normal in structure. No aortic regurgitation is present. There is no aortic valvular stenosis. MITRAL VALVE The mitral valve is normal in structure. There is no evidence of mitral valve prolapse. There is no mitral valve regurgitation noted. TRICUSPID VALVE The tricuspid valve is normal in structure. There is trace tricuspid regurgitation. Right ventricular systolic pressure is estimated at less than 30 mmHg. There is no pulmonary hypertension. PULMONIC VALVE The pulmonic valve is not well visualized. There is no pulmonic valvular regurgitation. GREAT VESSELS The aortic root is normal in size. The IVC was not visualized. PERICARDIAL EFFUSION There is no pericardial effusion. <Conclusion> Left ventricle systolic function is normal. The Ejection Fraction is 60-65%. Transmitral Doppler flow pattern is Grade I-abnormal relaxation pattern.
[2017-11-27 00:52] VITALS: RESP 20
[2017-11-27 06:36] LABS: BASO % 0.3 % (0.0-2.0); EOS # 0.2 K/uL (0.0-0.7); EOS % 2.8 % (0.0-4.0); HEMOGLOBIN 11.9 g/dL (11.0-16.0); LYMPH # 2.6 K/uL (1.0-4.3); LYMPH % 46.8 % (20.0-40.0); MEAN CELL VOLUME 85.4 fL (81.0-99.0); MEAN CORPUSCULAR HEMOGLOBIN 28.2 pg (27.0-31.0); MEAN PLATELET VOLUME 8.8 fL (7.2-11.7); MONO # 0.5 K/uL (0.0-0.8); MONO % 8.8 % (0.0-10.0); NEUT # 2.3 K/uL (1.8-7.0); NEUT % 41.3 % (50.0-75.0); NRBC % 0.1 % (0.0-2.0); RBC 4.22 Mil/uL (3.80-5.20); RED CELL DISTRIBUTION WIDTH 15.1 % (11.5-14.5); WHITE BLOOD COUNT 5.6 K/uL (4.8-10.8)
--- NOTE | 2017-11-27 06:42 | CON ---
DATE: REASON FOR CONSULTATION: Seizure. HISTORY OF PRESENT ILLNESS: The patient is a 52-year-old female with a history of seizure disorder, was in her usual state of health, and yesterday she noticed that her face was asymmetrical and she was having numbness in the face. Later on, the patient called ambulance and on the way to the hospital, the patient apparently had a seizure in the ambulance after which she was weak on the left side. The patient said she had been taking her medications regularly except yesterday morning. Her last seizure prior to this was about one week ago. At this moment, she denies having any focal weakness in the arms or legs. She does complain of just being tired. REVIEW OF SYSTEMS: Denies any headache, dizziness, chest pain, shortness of breath, abdominal pain, constipation, diarrhea, dysuria, cough, or sputum production. PAST MEDICAL HISTORY: Includes seizure disorder, hypertension, thyroid nodules. MEDICATIONS: Include Depakote 750 mg b.i.d., Keppra 1000 mg b.i.d., losartan/hydrochlorothiazide, cyproheptadine, Norvasc. PAST SURGICAL HISTORY: Includes appendectomy, tonsillectomy, ovarian cyst removal, and bladder sling for prolapse. SOCIAL HISTORY: Denies smoking, use of alcohol, or use of any illicit drugs. FAMILY HISTORY: Reviewed and noncontributory to the case. The patient's mother had lung cancer. ALLERGIES: TO IODINE AND METRONIDAZOLE. PHYSICAL EXAMINATION: GENERAL: The patient is a middle-aged female, sitting on the bed, in no acute distress. VITAL SIGNS: Blood pressure is 126/90, heart rate is 85 per minute, breathing at the rate of 16 per minute, temperature is 98 degrees Fahrenheit. HEENT: Head is normocephalic, atraumatic. NECK: Supple. There are no carotid bruits. LUNGS: Clear. CARDIOVASCULAR SYSTEM: S1 and S2 are audible. No murmurs. ABDOMEN: Soft and nontender, with bowel sounds present. NEUROLOGIC: Mental Status: The patient is awake and alert; oriented to time, place, and person. Speech is fluent. Naming and repetition are normal. Memory and cognition are intact. Cranial nerve examination: Pupils are 3 mm bilaterally, reactive to light. Visual sandra are full. Extraocular movements are intact. There is no facial asymmetry. Palate is upgoing bilaterally and tongue is midline. Motor examination: Tone is normal. Power is 5/5 bilaterally in all extremities. Reflexes are +2 and symmetrical. Plantars are downgoing bilaterally. Cerebellar Examination: [id number] shows no dysmetria. Gait is deferred at the moment. LABORATORY DATA: Labs reviewed shows WBC 6.2, hemoglobin 12.1, hematocrit of 36.0, and platelets of 187. Sodium is 146, potassium 3.5, chloride 105, carbon dioxide 25, BUN of 14, creatinine 0.5, and glucose of 90. Her T4 and TSH are within normal limits. She had CT scan of the head done which shows no acute intracranial pathology. The patient had serum valproic acid level done which is 44.4. IMPRESSION: 1. Breakthrough seizure with history of seizure disorder. 2. Status post facial asymmetry and weakness on the left side which is possibly secondary to Chad's paralysis. RECOMMENDATIONS: 1. The patient will have an MRI of the brain without contrast. 2. The patient's Depakote dose is to be increased to 1000 mg twice a day. the patient has been taking 750 mg twice a day and the level was subtherapeutic. 3. The patient to be continued on Keppra at the current dose. 4. If the patient's MRI of the brain is negative for any acute intracranial pathology and if the patient remains stable, she may be discharged with outpatient followup in about one week. Thank you for the opportunity to participate in the care of this patient. Gloria Augustin MD
[2017-11-27 07:15] LABS: ALB/GLOB RATIO 1.2 (1.0-2.1); ALBUMIN 3.9 g/dL (3.5-5.0); ALT/SGPT 7 U/L (9-52); AST/SGOT 20 U/L (14-36); BLOOD UREA NITROGEN 20 mg/dL (7-17); CALCIUM 8.7 mg/dl (8.6-10.4); GFR AFRICAN-AMERICAN > 60; GFR NON-AFRICAN AMERICAN > 60
[2017-11-27 08:24] VITALS: BP 113/82; PULSE 97; TEMP 98.4; O2SAT 98
[2017-11-27] MEDS: Divalproex 500 mg ER Tab PO SCH (09:24)
--- NOTE | 2017-11-27 11:00 | CP.PCM.DIS ---
<Quincy Ely - Last Filed: 11/27/17 18:41> Provider - Provider Date of Admission: 11/25/17 20:44 Attending physician: Almaz Luke DO Consults: Neuro - Augustin Time Spent in preparation of Discharge (in minutes): 30 Hospital Course - Lab Results Lab Results: Most Recent Lab Values WBC 5.6 K/uL (4.8-10.8) 11/27/17 06:22 RBC 4.22 Mil/uL (3.80-5.20) 11/27/17 06:22 Hgb 11.9 g/dL (11.0-16.0) 11/27/17 06:22 Hct 36.0 % (34.0-47.0) 11/27/17 06:22 MCV 85.4 fL (81.0-99.0) 11/27/17 06:22 MCH 28.2 pg (27.0-31.0) 11/27/17 06:22 MCHC 33.0 g/dL (33.0-37.0) 11/27/17 06:22 RDW 15.1 % (11.5-14.5) H 11/27/17 06:22 Plt Count 222 K/uL (130-400) 11/27/17 06:22 MPV 8.8 fL (7.2-11.7) 11/27/17 06:22 Neut % (Auto) 41.3 % (50.0-75.0) L 11/27/17 06:22 Lymph % (Auto) 46.8 % (20.0-40.0) H 11/27/17 06:22 [place] % (Auto) 8.8 % (0.0-10.0) 11/27/17 06:22 Eos % (Auto) 2.8 % (0.0-4.0) 11/27/17 06:22 Baso % (Auto) 0.3 % (0.0-2.0) 11/27/17 06:22 Neut # (Auto) 2.3 K/uL (1.8-7.0) 11/27/17 06:22 Lymph # (Auto) 2.6 K/uL (1.0-4.3) 11/27/17 06:22 [place] # (Auto) 0.5 K/uL (0.0-0.8) 11/27/17 06:22 Eos # (Auto) 0.2 K/uL (0.0-0.7) 11/27/17 06:22 Baso # (Auto) 0.0 K/uL (0.0-0.2) 11/27/17 06:22 Retic Count 0.8 % (0.5-1.5) 11/26/17 06:25 PT 16.5 SECONDS (9.7-12.2) H 11/25/17 18:40 INR 1.5 11/25/17 18:40 APTT 33 SECONDS (21-34) 11/25/17 18:40 Sodium 146 mmol/L (132-148) 11/27/17 06:22 Potassium 3.7 mmol/L (3.6-5.2) 11/27/17 06:22 Chloride 107 mmol/L (98-107) 11/27/17 06:22 Carbon Dioxide 25 mmol/L (22-30) 11/27/17 06:22 Anion Gap 17 (10-20) 11/27/17 06:22 BUN 20 mg/dL (7-17) H 11/27/17 06:22 Creatinine 0.8 mg/dL (0.7-1.2) 11/27/17 06:22 Est GFR ( Amer) > 60 11/27/17 06:22 Est GFR (Non-Af Amer) > 60 11/27/17 06:22 POC Glucose (mg/dL) 89 mg/dL (65-110) 11/26/17 12:12 Random Glucose 114 mg/dL (65-105) H 11/27/17 06:22 Calcium 8.7 mg/dl (8.6-10.4) 11/27/17 06:22 Phosphorus 4.3 mg/dL (2.5-4.5) 11/27/17 06:22 Magnesium 1.9 mg/dL (1.6-2.3) 11/27/17 06:22 Iron 55 ug/dL (37-170) 11/26/17 06:25 TIBC 297 ug/dL (250-450) 11/26/17 06:25 % Saturation 19 (20-55) L 11/26/17 06:25 Total Bilirubin 0.3 mg/dL (0.2-1.3) 11/27/17 06:22 AST 20 U/L (14-36) 11/27/17 06:22 ALT 7 U/L (9-52) L D 11/27/17 06:22 Alkaline Phosphatase 80 U/L (38-126) 11/27/17 06:22 Total Creatine Kinase 67 U/L (30-135) 11/26/17 13:56 CK-MB (Mass) 0.68 ng/mL (0.0-3.38) 11/26/17 13:56 Troponin I < 0.0120 ng/mL (0.00-0.120) 11/26/17 13:56 Total Protein 7.2 g/dL (6.3-8.3) 11/27/17 06:22 Albumin 3.9 g/dL (3.5-5.0) 11/27/17 06:22 Globulin 3.3 gm/dL (2.2-3.9) 11/27/17 06:22 Albumin/Globulin Ratio 1.2 (1.0-2.1) 11/27/17 06:22 Free T4 1.09 ng/dL (0.78-2.19) 11/25/17 18:06 TSH 3rd Generation 0.57 mIU/L (0.46-4.68) 11/25/17 18:06 Urine Color Yellow (YELLOW) 11/25/17 19:38 Urine Clarity Hazy (Clear) 11/25/17 19:38 Urine pH 6.0 (5.0-8.0) 11/25/17 19:38 Ur Specific [place] 1.015 (1.003-1.030) 11/25/17 19:38 Urine Protein Negative mg/dL (NEGATIVE) 11/25/17 19:38 Urine Glucose (UA) Normal mg/dL (Normal) 11/25/17 19:38 Urine Ketones Trace mg/dL (NEGATIVE) 11/25/17 19:38 Urine Blood 1+ (NEGATIVE) H 11/25/17 19:38 Urine Nitrate Negative (NEGATIVE) 11/25/17 19:38 Urine Bilirubin Negative (NEGATIVE) 11/25/17 19:38 Urine Urobilinogen Normal mg/dL (0.2-1.0) 11/25/17 19:38 Ur Leukocyte Esterase Neg [place]/uL (Negative) 11/25/17 19:38 Urine WBC (Auto) 1 /hpf (0-5) 11/25/17 19:38 Urine RBC (Auto) 5 /hpf (0-3) H 11/25/17 19:38 Ur Squamous Epith Cells 4 /hpf (0-5) 11/25/17 19:38 Urine HCG, Qual Negative (NEGATIVE) 11/26/17 07:42 Urine Opiates Screen Negative (NEGATIVE) 11/25/17 19:38 Urine Methadone Screen Negative (NEGATIVE) 11/25/17 19:38 Ur Barbiturates Screen Negative (NEGATIVE) 11/25/17 19:38 Valproic Acid 44.4 ug/mL (50.0-100.0) L 11/25/17 18:06 Ur Phencyclidine Scrn Negative (NEGATIVE) 11/25/17 19:38 Ur Amphetamines Screen Negative (NEGATIVE) 11/25/17 19:38 U Benzodiazepines Scrn Negative (NEGATIVE) 11/25/17 19:38 U Oth Cocaine Metabols Negative (NEGATIVE) 11/25/17 19:38 U Cannabinoids Screen Negative (NEGATIVE) 11/25/17 19:38 Alcohol, Quantitative < 10 mg/dl (0-10) 11/25/17 18:06 Hepatitis A IgM Ab Negative (NEGATIVE) 11/26/17 06:25 Hep Bs Antigen Negative (NEGATIVE) 11/26/17 06:25 Hep B Core IgM Ab Negative (NEGATIVE) 11/26/17 06:25 Hepatitis C Antibody Negative (NEGATIVE) 11/26/17 06:25 HIV 1&2 Antibody Screen Negative (NEGATIVE) 11/26/17 06:25 - Hospital Course Hospital Course: As per admission documentation 52 year old female with past medical history of seizure disorder, HTN, thyroid nodules presents to the ER for right eye droop and left facial numbness. Patient states she noticed the right eye droop yesterday when her homemaker arrived between the hours of 1-4pm. She denies eye pain or eye discharge. She states the left facial numbness is only in the cheek and half of her lip area. She states it feels like she just went to the dentist. She states this has never occurred before. She states the left sided numbness started today in the afternoon. She states she was told she had a seizure on the way to the hospital in the ambulance. Her most recent seizure prior was last Thursday. She states she does take her medications daily. She also states she has been feeling short of breath for about 2 months. She spoke to her PMD and patient states it may be due to her thyroid nodules. She does not use pillows to sleep and she can sleep flat without a distress. She states when she goes up the stairs she has to stop half way to catch her breath. Patient denies chest pain , palpitations, headache, lightheadedness, dizziness, nausea or vomiting. 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 Patient's Neurologist, Dr. Augustin, was consulted. Head CT 11/25: Stable unremarkable unenhanced head CT as discussed above. Follow -up CT or MRI is available if clinically warranted. Brain MRI 11/26: No acute intracranial hemorrhage or infarct. Mild chronic appearing white matter ischemic changes as described. No evidence to suggest mesial temporal sclerosis. CXR 11/25: No interval acute cardiopulmonary disease appreciated. ECHO 11/26: Left ventricle systolic function is normal. The Ejection Fraction is 60-65%. Transmitral Doppler flow pattern is Grade I-abnormal relaxation pattern. Patient had an [employer] called on her during the ECHO on 11/26. Patient had a syncopal episode during the test. Patient did not have any confusion upon waking. Patient later stated that she passes out when she is hot and feels overheated. "That happens to me all the time at home. I just need some ice packs at that point." Patient was stable throughout the rest of her stay and her right eye droop resolved. Dr. Augustin increased her Depakote to 1,000 PO BID. Patient returned to baseline and was discharged home on 11/27 with the following instructions Discharge Instructions Patient is to be discharged home per Dr. Luke. Patient is to follow up with her primary care physician, Dr. Lm Romero, within one week of being discharged. Patient is to follow up with Dr. Gloria Augustin (Neurology) within one week of being discharge. Patient was instructed to stop taking her old prescriptions of Depakote because her dose has been changed. Her Depakote was increased to 1,000mg PO BID. She was given a script for 30 days. Patient was instructed to continue to take her medications as previous prescribed as directed below. If patient experiences any new or worsening symptoms, please go to the nearest emergency room. Discharge Medication Regiment Amlodipine 5 mg PO daily Cyproheptadine 4 mg PO daily Depakote 1,000mg PO BID - script given for 30 days Keppra 500mg PO BID Losartan - Hydrochlorothiazide 50 - 12.5 mg PO daily Physical Exam Appears: Non-toxic, No Acute Distress Head Exam: ATRAUMATIC, NORMOCEPHALIC Eye Exam: EOMI, Normal appearance Additional comments: Right eye droop resolved. ENT Exam: Mucous Membranes Moist Respiratory Exam: Clear to Ausculation Bilateral, NORMAL BREATHING PATTERN. absent: Accessory Muscle Use, Rales, Rhonchi, Wheezes, Respiratory Distress Cardiovascular Exam: REGULAR RHYTHM, +S1, +S2. absent: JVD GI & Abdominal Exam: Soft, Normal Bowel Sounds. absent: Distended, Firm, Guarding, Rigid, Tenderness Extremities Exam: absent: Calf Tenderness, Pedal Edema Neurological Exam: Alert, Awake, Oriented x3 Neuro motor strength exam: Left Upper Extremity: 5, Right Upper Extremity: 5, Left Lower Extremity: 5, Right Lower Extremity: 5 Additional comments: decreased sensation of left cheek - resolved Psychiatric exam: Normal Mood. absent: Normal Affect (patient appears very lethargic. slow speaking - "I am fine. I want to go home.") Skin Exam: Dry, Warm Discharge Exam - Head Exam Head Exam: ATRAUMATIC, NORMOCEPHALIC Discharge Plan - Discharge Medications Prescriptions: Divalproex [Depakote ER] 1,000 mg PO BID #60 ter - Follow Up Plan Condition: STABLE Disposition: HOME/ ROUTINE Instructions: Seizures, Adult (DC), Valproic Acid and Derivatives Additional Instructions: Patient is to be discharged home per Dr. Luke. Patient is to follow up with her primary care physician, Dr. Lm Romero, within one week of being discharged. Patient is to follow up with Dr. Gloria Augustin (Neurology) within one week of being discharge. Patient was instructed to stop taking her old prescriptions of Depakote because her dose has been changed. Her Depakote was increased to 1,000mg PO BID. She was given a script for 30 days. Patient was instructed to continue to take her medications as previous prescribed as directed below. If patient experiences any new or worsening symptoms, please go to the nearest emergency room. Discharge Medication Regiment Amlodipine 5 mg PO daily Cyproheptadine 4 mg PO daily Depakote 1,000mg PO BID - script given for 30 days Keppra 500mg PO BID Losartan - Hydrochlorothiazide 50 - 12.5 mg PO daily <Almaz Luke V - Last Filed: 11/27/17 19:56> Provider - Provider Date of Admission: 11/25/17 20:44 Attending physician: Almaz Luke DO Time Spent in preparation of Discharge (in minutes): 31 Diagnosis - Discharge Diagnosis (1) Chad's paralysis (postepileptic) Status: Resolved Comment: Eye droop has resolved. Neurology came and assessed the patient. Completed CT Head and Brain MRI recommendation. Valproic acid not therapuetic. Valproic acid increased to 1000mg PO BID. Recommended to f/u with neurology in 1 week (2) Seizure disorder Status: Chronic Comment: New medication: Depakote 1000mg PO BID and c/w Keppra 500mg PO BID. Instructed to stop old medication dosage (3) Hypertension Status: Chronic Comment: c/w home medications for blood pressure. No refill needed per patient. Hospital Course - Lab Results Lab Results: Most Recent Lab Values WBC 5.6 K/uL (4.8-10.8) 11/27/17 06:22 RBC 4.22 Mil/uL (3.80-5.20) 11/27/17 06:22 Hgb 11.9 g/dL (11.0-16.0) 11/27/17 06:22 Hct 36.0 % (34.0-47.0) 11/27/17 06:22 MCV 85.4 fL (81.0-99.0) 11/27/17 06:22 MCH 28.2 pg (27.0-31.0) 11/27/17 06:22 MCHC 33.0 g/dL (33.0-37.0) 11/27/17 06:22 RDW 15.1 % (11.5-14.5) H 11/27/17 06:22 Plt Count 222 K/uL (130-400) 11/27/17 06:22 MPV 8.8 fL (7.2-11.7) 11/27/17 06:22 Neut % (Auto) 41.3 % (50.0-75.0) L 11/27/17 06:22 Lymph % (Auto) 46.8 % (20.0-40.0) H 11/27/17 06:22 [place] % (Auto) 8.8 % (0.0-10.0) 11/27/17 06:22 Eos % (Auto) 2.8 % (0.0-4.0) 11/27/17 06:22 Baso % (Auto) 0.3 % (0.0-2.0) 11/27/17 06:22 Neut # (Auto) 2.3 K/uL (1.8-7.0) 11/27/17 06:22 Lymph # (Auto) 2.6 K/uL (1.0-4.3) 11/27/17 06:22 [place] # (Auto) 0.5 K/uL (0.0-0.8) 11/27/17 06:22 Eos # (Auto) 0.2 K/uL (0.0-0.7) 11/27/17 06:22 Baso # (Auto) 0.0 K/uL (0.0-0.2) 11/27/17 06:22 Retic Count 0.8 % (0.5-1.5) 11/26/17 06:25 PT 16.5 SECONDS (9.7-12.2) H 11/25/17 18:40 INR 1.5 11/25/17 18:40 APTT 33 SECONDS (21-34) 11/25/17 18:40 Sodium 146 mmol/L (132-148) 11/27/17 06:22 Potassium 3.7 mmol/L (3.6-5.2) 11/27/17 06:22 Chloride 107 mmol/L (98-107) 11/27/17 06:22 Carbon Dioxide 25 mmol/L (22-30) 11/27/17 06:22 Anion Gap 17 (10-20) 11/27/17 06:22 BUN 20 mg/dL (7-17) H 11/27/17 06:22 Creatinine 0.8 mg/dL (0.7-1.2) 11/27/17 06:22 Est GFR ( Amer) > 60 11/27/17 06:22 Est GFR (Non-Af Amer) > 60 11/27/17 06:22 POC Glucose (mg/dL) 89 mg/dL (65-110) 11/26/17 12:12 Random Glucose 114 mg/dL (65-105) H 11/27/17 06:22 Calcium 8.7 mg/dl (8.6-10.4) 11/27/17 06:22 Phosphorus 4.3 mg/dL (2.5-4.5) 11/27/17 06:22 Magnesium 1.9 mg/dL (1.6-2.3) 11/27/17 06:22 Iron 55 ug/dL (37-170) 11/26/17 06:25 TIBC 297 ug/dL (250-450) 11/26/17 06:25 % Saturation 19 (20-55) L 11/26/17 06:25 Total Bilirubin 0.3 mg/dL (0.2-1.3) 11/27/17 06:22 AST 20 U/L (14-36) 11/27/17 06:22 ALT 7 U/L (9-52) L D 11/27/17 06:22 Alkaline Phosphatase 80 U/L (38-126) 11/27/17 06:22 Total Creatine Kinase 67 U/L (30-135) 11/26/17 13:56 CK-MB (Mass) 0.68 ng/mL (0.0-3.38) 11/26/17 13:56 Troponin I < 0.0120 ng/mL (0.00-0.120) 11/26/17 13:56 Total Protein 7.2 g/dL (6.3-8.3) 11/27/17 06:22 Albumin 3.9 g/dL (3.5-5.0) 11/27/17 06:22 Globulin 3.3 gm/dL (2.2-3.9) 11/27/17 06:22 Albumin/Globulin Ratio 1.2 (1.0-2.1) 11/27/17 06:22 Free T4 1.09 ng/dL (0.78-2.19) 11/25/17 18:06 TSH 3rd Generation 0.57 mIU/L (0.46-4.68) 11/25/17 18:06 Urine Color Yellow (YELLOW) 11/25/17 19:38 Urine Clarity Hazy (Clear) 11/25/17 19:38 Urine pH 6.0 (5.0-8.0) 11/25/17 19:38 Ur Specific [place] 1.015 (1.003-1.030) 11/25/17 19:38 Urine Protein Negative mg/dL (NEGATIVE) 11/25/17 19:38 Urine Glucose (UA) Normal mg/dL (Normal) 11/25/17 19:38 Urine Ketones Trace mg/dL (NEGATIVE) 11/25/17 19:38 Urine Blood 1+ (NEGATIVE) H 11/25/17 19:38 Urine Nitrate Negative (NEGATIVE) 11/25/17 19:38 Urine Bilirubin Negative (NEGATIVE) 11/25/17 19:38 Urine Urobilinogen Normal mg/dL (0.2-1.0) 11/25/17 19:38 Ur Leukocyte Esterase Neg [place]/uL (Negative) 11/25/17 19:38 Urine WBC (Auto) 1 /hpf (0-5) 11/25/17 19:38 Urine RBC (Auto) 5 /hpf (0-3) H 11/25/17 19:38 Ur Squamous Epith Cells 4 /hpf (0-5) 11/25/17 19:38 Urine HCG, Qual Negative (NEGATIVE) 11/26/17 07:42 Urine Opiates Screen Negative (NEGATIVE) 11/25/17 19:38 Urine Methadone Screen Negative (NEGATIVE) 11/25/17 19:38 Ur Barbiturates Screen Negative (NEGATIVE) 11/25/17 19:38 Valproic Acid 44.4 ug/mL (50.0-100.0) L 11/25/17 18:06 Ur Phencyclidine Scrn Negative (NEGATIVE) 11/25/17 19:38 Ur Amphetamines Screen Negative (NEGATIVE) 11/25/17 19:38 U Benzodiazepines Scrn Negative (NEGATIVE) 11/25/17 19:38 U Oth Cocaine Metabols Negative (NEGATIVE) 11/25/17 19:38 U Cannabinoids Screen Negative (NEGATIVE) 11/25/17 19:38 Alcohol, Quantitative < 10 mg/dl (0-10) 11/25/17 18:06 Hepatitis A IgM Ab Negative (NEGATIVE) 11/26/17 06:25 Hep Bs Antigen Negative (NEGATIVE) 11/26/17 06:25 Hep B Core IgM Ab Negative (NEGATIVE) 11/26/17 06:25 Hepatitis C Antibody Negative (NEGATIVE) 11/26/17 06:25 HIV 1&2 Antibody Screen Negative (NEGATIVE) 11/26/17 06:25 Discharge Exam - Eye Exam Eye Exam: EOMI, Normal appearance, PERRL Pupil Exam: NORMAL ACCOMODATION Additional comments: eye droop resolved - ENT Exam ENT Exam: Mucous Membranes Moist - Neck Exam Neck exam: Thyromegaly - Respiratory Exam Respiratory Exam: Clear to PA & Lateral, NORMAL BREATHING PATTERN. absent: Rales, Rhonchi - Cardiovascular Exam Cardiovascular Exam: REGULAR RHYTHM, +S1, +S2 - GI/Abdominal Exam GI & Abdominal Exam: Normal Bowel Sounds, Soft. absent: Distended, Firm, Guarding, Rebound, Rigid, Tenderness - Neurological Exam Neurological exam: Alert, CN II-XII Intact, Normal Gait, Oriented x3, Reflexes Normal - Psychiatric Exam Psychiatric exam: Normal Affect, Normal Mood - Skin Skin Exam: Dry, Intact, Normal Color, Warm Attending/Attestation - Attestation I have personally seen and examined this patient.: Yes I have fully participated in the care of the patient.: Yes I have reviewed all pertinent clinical information, including history, physical exam and plan: Yes Notes (Text): Patient seen, examined and case discussed with biomedical manager. Patient seen at bedside. Patient denies acute complaints Discussed Brain MRI findings the patient, she is aware to follow-up with Dr. Augustin next week. Patient provided new prescription for Depakote 1000mg PO BID upon discharge and advised to discontinued her Depakote 750mg PO BID. Patient medically stable for discharge; recommended to f/u with Yoli Romero her PMD and Dr. Chastity Augustin her neurologist. This is a summary of patient's hospitalization. please see EMR for further details of record. Discharge Diagnoses: 1) Right Eye droop Likely Secondary to Chad's Paralysis * Neuro Consult: Dr. Augustin help appreciated * Head CT: Stable unremarkable unenhanced head CT as discussed above. Follow- up CT or MRI is available if clinically warranted. * Brain MRI (11/26/17); no acute intracranial hemorrhage or infarct. Mild chronic appearing white matter ischemic changes as described. No evidence to suggest mesial temporal sclerosis * During rounds, eye droop has resolved. * Seizure Precautions * Old regiment adjusted to Depakote 750mg BID --> increased to Depakote 1000mg BID and Keppra 500mg BID * Low Valproic Acid * Echocardiogram completed official report available in the EMR 2) History of Known Seizure Disorder * Neuro Consult: Dr. Augustin help appreciated * Head CT: Stable unremarkable unenhanced head CT as discussed above. Follow- up CT or MRI is available if clinically warranted. * Old regiment adjusted to Depakote 750mg BID --> increased to Depakote 1000mg BID and Keppra 500mg BID * Low Valproic Acid 3) History of Thyroid Nodules * TSH .57; Free T4 1.09 * Patient is awaiting surgical evaluation as outpatient 4) History of Hypertension * Continue Norvasc 5mg PO daily * Continue Losartan/HCTZ 50/12.5mg PO daily 5) Leukopenia (resolved) * initial cbc likely due to lab error given sample was hemolyzed * WBC: 6.2 * HIV - Negative * Hepatitis panel - Negative 6) Anemia (resolved) * likely due to lab error to given part if sample was hemolyzed when admitted * Hgb normalized. H/H: 12.136 7) Prophylaxis * SCDs * PT/OT eval * Chemical anticoagulation secondary to rule out bleed given drop of hemoglobin on admission * Patient is ambulatory
--- NOTE | 2017-11-27 13:34 | CARD ---
APPROVED REPORT EKG Measurement Heart [id number] <Conclusion> Normal sinus rhythm Cannot rule out Anterior infarct, age undetermined Abnormal ECG
== END 2017-11-27 10:40 | disposition home or self-care (01) ==
LOC: C.ER 17:19 → C.9E 20:44 → C.6T 20:44
PROVIDERS: ADMIT Hospitalist; ATTEND Hospitalist
DX: G83.84 Todd's paralysis (postepileptic) (principal); D72.819 Decreased white blood cell count, unspecified; E04.2 Nontoxic multinodular goiter; G40.909 Epilepsy, unspecified, not intractable, without status epilepticus; I10 Essential (primary) hypertension
CPT/HCPCS: 36415; 70450; 70551; 71046; 80053; 80074; 80164; 81001; 82948; 83540; 83550; 83735; 84100; 84439; 84443; 84484; 84703; 85025; 85044; 85610; 85730; 86703; 93005; 93306; 96360; 96361; 97110; 97116; 97162; 97166; 97530; 99285; G0378; G0480; G8978; G8979; G8987; G8988; J7040

== ENCOUNTER 2018-04-27 11:59 | Emergency (ER) | payer MEDICARE, OTHER ==
[2018-04-27 12:12] VITALS: BP 160/119; PULSE 96; RESP 20; TEMP 98.1; O2SAT 95
== END 2018-04-27 12:08 | disposition left against medical advice (07) ==
LOC: C.ER 11:59
DX: Z02.89 Encounter for other administrative examinations (principal); R19.7 Diarrhea, unspecified

== ENCOUNTER 2018-09-08 14:15 | Outpatient (CLI) | payer MEDICARE, OTHER | END 2018-09-08 14:16 | disposition home or self-care (01) | LOC: C.USIC 14:15 ==

== ENCOUNTER 2018-10-27 14:18 | Outpatient (CLI) | payer MEDICARE, OTHER | END 2018-10-27 14:19 | disposition home or self-care (01) | LOC: C.MAMMO 14:18 | DX: Z12.31 Encounter for screening mammogram for malignant neoplasm of breast (principal) ==

== ENCOUNTER 2018-10-28 23:29 | Inpatient (IN) | payer MEDICARE, OTHER ==
--- NOTE | 2018-10-29 | C.PDOC ---
History Of Present Illness The patient presents to the ED for evaluation of elevated blood pressure noted today. Patient was evaluated by her doctor today earlier today. Patient states she took her usual medication and an extra dose. She reports systolic pressure around 200s. Patient also complains of some chest discomfort that is non- radiating and intermittent. Patient currently denies chest pain in the ED, as well as vision change, slurred speech, fever, chills, nausea and vomiting. Time Seen by Provider: 10/29/18 00:00 Chief Complaint (Nursing): High Blood Pressure History Per: Patient History/Exam Limitations: no limitations Onset/Duration Of Symptoms: Hrs, Intermittent Episodes Current Symptoms Are (Timing): Still Present Associated Symptoms: Chest Pain Severity: Mild Pain Scale Rating Of: 2 Exacerbating Factor(s): Neg: Recently Missed Doses Of Medication Recent travel outside of the [place]: No Additional History Per: Patient Past Medical History Reviewed: Historical Data, Nursing Documentation, Vital Signs Vital Signs: Last Vital Signs Temp 98.1 F 10/28/18 23:34 Pulse 87 10/28/18 23:34 Resp 20 10/28/18 23:34 BP 183/119 H 10/28/18 23:34 Pulse Ox 99 10/28/18 23:34 - Medical History PMH: Atrial Fibrillation, CHF, HTN, Seizures, TIA Denies: Chronic Kidney Disease Surgical History: Appendectomy, Tonsillectomy - [facility] Procedures INSERTION OF INFUSION DEV INTO SUP VENA CAVA, PERC APPROACH (10/23/15) Family History: States: No Known Family Hx - Social History Hx Tobacco Use: No Hx Alcohol Use: No Hx Substance Use: No - Immunization History Hx Tetanus Toxoid Vaccination: No Hx Influenza Vaccination: No Hx Pneumococcal Vaccination: No Review Of Systems Constitutional: Positive for: Other (elevated blood pressure ). Negative for: Fever, Chills Eyes: Negative for: Vision Change Cardiovascular: Positive for: Chest Pain. Negative for: Palpitations Respiratory: Negative for: Cough, Shortness of Breath Gastrointestinal: Negative for: Nausea, Vomiting, Abdominal Pain Musculoskeletal: Negative for: Neck Pain, Shoulder Pain, Arm Pain, Back Pain Skin: Negative for: Rash, Lesions, Jaundice, Bruising Neurological: Negative for: Weakness, Numbness, Change in Speech Physical Exam - Physical Exam Appears: Non-toxic, No Acute Distress Skin: Warm, Dry Head: Normacephalic Eye(s): bilateral: Normal Inspection Oral Mucosa: Moist Neck: Supple Chest: Symmetrical, No Deformity Cardiovascular: Rhythm Regular, No Murmur Respiratory: No Rales, No Rhonchi, No Wheezing Extremity: Normal ROM, Capillary Refill (less than 2 seconds ) Neurological/Psych: Oriented x3 ED Course And Treatment - Laboratory Results Result Diagrams: 10/29/18 01:00 10/29/18 01:00 ECG: Interpreted By Me, Viewed By Me ECG Rhythm: Sinus Rhythm (90), Nonspecific Changes O2 Sat by Pulse Oximetry: 99 (on RA ) Pulse Ox Interpretation: Normal - Radiology CXR: Interpreted by Me, Viewed By Me CXR Interpretation: No: Infiltrates, Fracture, Pnemothorax Progress Note: Bloodwork, urinalysis, CXR, EKG ordered and reviewed. Aspirin PO and Catapres PO given. 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 and has a vaginal infection Disposition Discussed With DrPamela: Syed Hassan Comment: accepted the pt on his service and took over the care at 3:38 AM Doctor Will See Patient In The: Hospital Counseled Patient/Family Regarding: Studies Performed, Diagnosis - Disposition Disposition: HOSPITALIZED Disposition Time: 00:00 Condition: FAIR Forms: [employer] (Danish) - POA Present On Arrival: None - Clinical Impression Clinical Impression: Chest pain, Uncontrolled hypertension - Scribe Statement The provider has reviewed the documentation as recorded by the Scribe (Kendy Hassan) Provider Attestation: All medical record entries made by the Scribe were at my direction and pe rsonally dictated by me. I have reviewed the chart and agree that the record accurately reflects my personal performance of the history, physical exam, medical decision making, and the department course for this patient. I have also personally directed, reviewed, and agree with the discharge instructions and disposition. Decision To Admit - Pt Status Changed To: Hospital Disposition Of: Inpatient - Admit Certification Admit to Inpatient:: After my assessment, the patient will require hospitalization for at least two midnights. This is because of the severity of symptoms shown, intensity of services needed, and/or the medical risk in this patient being treated as an outpatient. - InPatient: Physician Admission Certification: I certify that this patient requires 2 or more midnights of care for the following reason:: After my assessment, the patient will require hospitalization for at least two midnights. This is because of the severity of symptoms shown, intensity of services needed, and/or the medical risk in this patient being treated as an outpatient. - . Bed Request Type: Telemetry Admitting Physician: Syed Hassan Patient Diagnosis: Chest pain, Uncontrolled hypertension, Vaginitis
[2018-10-29] MEDS ORDERED: Aspirin 325 mg EC Tablets PO STA (00:01)
[2018-10-29] MEDS ORDERED: Aspirin 325 mg EC Tablets PO ONE (00:48)
[2018-10-29 01:19] LABS: BASO % 0.7 % (0.0-2.0); EOS # 0.1 K/uL (0.0-0.7); HEMOGLOBIN 12.9 g/dL (11.0-16.0); LYMPH % 28.7 % (20.0-40.0); MEAN CELL VOLUME 86.7 fL (81.0-99.0); MEAN CORPUSCULAR HEMOGLOBIN 27.3 pg (27.0-31.0); MEAN CORPUSCULAR HGB CONC 31.5 g/dL (33.0-37.0); MEAN PLATELET VOLUME 8.9 fL (7.2-11.7); MONO # 0.6 K/uL (0.0-0.8); MONO % 8.6 % (0.0-10.0); NEUT # 4.3 K/uL (1.8-7.0); NRBC % 0.3 % (0.0-2.0); RBC 4.72 Mil/uL (3.80-5.20); RED CELL DISTRIBUTION WIDTH 14.7 % (11.5-14.5)
[2018-10-29 01:24] LABS: ALB/GLOB RATIO 1.3 (1.0-2.1); ALBUMIN 4.9 g/dL (3.5-5.0); ALT/SGPT 18 U/L (9-52); AST/SGOT 24 U/L (14-36); BLOOD UREA NITROGEN 20 mg/dL (7-17); CALCIUM 9.5 mg/dl (8.6-10.4); GFR NON-AFRICAN AMERICAN > 60; LIPASE 90 U/L (23-300)
[2018-10-29 01:33] LABS: PROTHROMBIN TIME 11.2 SECONDS (9.7-12.2)
[2018-10-29 01:36] LABS: B-TYPE NATRIURETIC PEPTIDE 79.8 pg/mL (0-900)
[2018-10-29 02:53] LABS: SQUAMOUS EPITHIAL 1 /hpf (0-5); URINE BILIRUBIN NEGATIVE (NEGATIVE); URINE BLOOD 1+ (NEGATIVE); URINE CLARITY Clear (Clear); URINE COLOR Yellow (YELLOW); URINE GLUCOSE (UA) NORMAL (Normal); URINE LEUKOCYTE ESTERASE NEG Leu/uL (Negative); URINE PROTEIN NEGATIVE (NEGATIVE); URINE UROBILINOGEN NORMAL mg/dL (0.2-1.0)
--- NOTE | 2018-10-29 08:24 | RAD ---
Date of service: 10/29/2018 PROCEDURE: CHEST RADIOGRAPH, 1 VIEW HISTORY: Chest pain COMPARISON: 11/17/2017. FINDINGS: LUNGS: The lungs are well inflated and clear. PLEURA: No pneumothorax or pleural effusion. CARDIOVASCULAR: The heart is normal in size. No aortic atherosclerotic calcifications present. OSSEOUS STRUCTURES: Within normal limits for the patient's age. VISUALIZED UPPER ABDOMEN: Normal. OTHER FINDINGS: None. IMPRESSION: No active pulmonary disease.
[2018-10-29] MEDS ORDERED: Albuterol HFA 90 mcg/actuation (8 g) INH PRN (09:12)
[2018-10-29 09:51] LABS: CK-MB 0.55 ng/mL (0.0-3.38)
[2018-10-29] MEDS: Enoxaparin 40 mg Syringe SC SCH (10:08)
[2018-10-29] MEDS: diltiaZEM 240 mg/24 Hours CD Cap PO SCH (12:20)
[2018-10-29] MEDS: Divalproex 500 mg DR Tab PO SCH ×2 (12:20→18:29)
--- NOTE | 2018-10-29 19:42 | CP.PCM.HP ---
Past Patient History - Infectious Disease Hx of Infectious Diseases: None - Past Medical History & Family History Past Medical History?: Yes - Past Social History Smoking Status: Never Smoked - CARDIAC Hx Atrial Fibrillation: Yes Hx Congestive Heart Failure: Yes Hx Hypertension: Yes - PULMONARY Hx Respiratory Disorders: No Other/Comment: "MASS IN THROAT" - NEUROLOGICAL Hx Seizures: Yes Hx Transient Ischemic Attacks (TIA): Yes - HEENT Hx HEENT Problems: No - RENAL Hx Chronic Kidney Disease: No - HEMATOLOGICAL/ONCOLOGICAL Hx Blood Transfusions: No - INTEGUMENTARY Hx Dermatological Problems: No - MUSCULOSKELETAL/RHEUMATOLOGICAL Hx Falls: Yes - GASTROINTESTINAL Hx Gastrointestinal Disorders: No - GENITOURINARY/GYNECOLOGICAL Hx Genitourinary Disorders: No - PSYCHIATRIC Hx Substance Use: No - SURGICAL HISTORY Hx Appendectomy: Yes Hx Tonsillectomy: Yes - ANESTHESIA Hx Anesthesia: Yes Hx Anesthesia Reactions: No Meds Allergies/Adverse Reactions: Allergies Allergy/AdvReac Type Severity Reaction Status Date / Time Iodinated Contrast- Oral and Allergy Verified 10/28/18 23:40 IV Dye metronidazole [From Flagyl] Allergy SWELLING Verified 10/28/18 23:40 iv dye Allergy Uncoded 10/28/18 23:40 Physical Exam - Constitutional Appears: Well - Head Exam Head Exam: ATRAUMATIC, NORMAL INSPECTION, NORMOCEPHALIC - Eye Exam Eye Exam: EOMI, Normal appearance, PERRL Pupil Exam: NORMAL ACCOMODATION, PERRL - ENT Exam ENT Exam: Mucous Membranes Moist, Normal Exam - Neck Exam Neck exam: Positive for: Normal Inspection - Respiratory Exam Respiratory Exam: Decreased Breath Sounds - Cardiovascular Exam Cardiovascular Exam: REGULAR RHYTHM, +S1, +S2 - GI/Abdominal Exam GI & Abdominal Exam: Diminished Bowel Sounds, Soft - Rectal Exam Rectal Exam: Deferred Results - Vital Signs Recent Vital Signs: Last Vital Signs Temp 98.3 F 10/29/18 15:00 Pulse 95 H 10/29/18 18:00 Resp 20 10/29/18 15:00 BP 96/65 L 10/29/18 15:00 Pulse Ox 97 10/29/18 15:00 - Labs Result Diagrams: 10/29/18 01:00 10/29/18 01:00 Labs: Laboratory Results - last 24 hr 10/29/18 10/29/18 10/29/18 01:00 01:00 01:00 WBC 7.0 RBC 4.72 Hgb 12.9 Hct 41.0 MCV 86.7 MCH 27.3 MCHC 31.5 L RDW 14.7 H Plt Count 174 MPV 8.9 Neut % (Auto) 61.0 Lymph % (Auto) 28.7 [place] % (Auto) 8.6 Eos % (Auto) 1.0 Baso % (Auto) 0.7 Neut # (Auto) 4.3 Lymph # (Auto) 2.0 [place] # (Auto) 0.6 Eos # (Auto) 0.1 Baso # (Auto) 0.0 PT 11.2 INR 1.0 APTT 24 Sodium 141 Potassium 4.1 Chloride 105 Carbon Dioxide 27 Anion Gap 14 BUN 20 H Creatinine 0.6 L Est GFR ( Amer) > 60 Est GFR (Non-Af Amer) > 60 Random Glucose 105 Calcium 9.5 Total Bilirubin 0.5 AST 24 ALT 18 Alkaline Phosphatase 106 Total Creatine Kinase CK-MB (Mass) Troponin I < 0.0120 NT-Pro-B Natriuret Pep 79.8 Total Protein 8.6 H Albumin 4.9 Globulin 3.7 Albumin/Globulin Ratio 1.3 Lipase 90 Urine Color Urine Clarity Urine pH Ur Specific [place] Urine Protein Urine Glucose (UA) Urine Ketones Urine Blood Urine Nitrate Urine Bilirubin Urine Urobilinogen Ur Leukocyte Esterase Urine WBC (Auto) Urine RBC (Auto) Ur Squamous Epith Cells 10/29/18 10/29/18 02:44 09:15 WBC RBC Hgb Hct MCV MCH MCHC RDW Plt Count MPV Neut % (Auto) Lymph % (Auto) [place] % (Auto) Eos % (Auto) Baso % (Auto) Neut # (Auto) Lymph # (Auto) [place] # (Auto) Eos # (Auto) Baso # (Auto) PT INR APTT Sodium Potassium Chloride Carbon Dioxide Anion Gap BUN Creatinine Est GFR ( Amer) Est GFR (Non-Af Amer) Random Glucose Calcium Total Bilirubin AST ALT Alkaline Phosphatase Total Creatine Kinase 56 CK-MB (Mass) 0.55 Troponin I < 0.0120 NT-Pro-B Natriuret Pep Total Protein Albumin Globulin Albumin/Globulin Ratio Lipase Urine Color Yellow Urine Clarity Clear Urine pH 6.0 Ur Specific [place] 1.018 Urine Protein Negative Urine Glucose (UA) Normal Urine Ketones Negative Urine Blood 1+ H Urine Nitrate Negative Urine Bilirubin Negative Urine Urobilinogen Normal Ur Leukocyte Esterase Neg Urine WBC (Auto) 1 Urine RBC (Auto) 5 H Ur Squamous Epith Cells 1 Assessment & Plan - Assessment and Plan (Free Text) Plan: nsr on ekg will not order eliquis orlovenod
[2018-10-29 22:15] LABS: CK-MB 0.31 ng/mL (0.0-3.38)
[2018-10-30 07:19] LABS: BASO % 0.2 % (0.0-2.0); EOS # 0.1 K/uL (0.0-0.7); EOS % 2.4 % (0.0-4.0); HEMOGLOBIN 12.1 g/dL (11.0-16.0); LYMPH # 2.4 K/uL (1.0-4.3); LYMPH % 49.5 % (20.0-40.0); MEAN CELL VOLUME 87.2 fL (81.0-99.0); MEAN CORPUSCULAR HEMOGLOBIN 28.6 pg (27.0-31.0); MEAN CORPUSCULAR HGB CONC 32.8 g/dL (33.0-37.0); MEAN PLATELET VOLUME 8.5 fL (7.2-11.7); MONO # 0.5 K/uL (0.0-0.8); MONO % 10.7 % (0.0-10.0); NEUT # 1.8 K/uL (1.8-7.0); NEUT % 37.2 % (50.0-75.0); NRBC % 0.1 % (0.0-2.0); RBC 4.25 Mil/uL (3.80-5.20); RED CELL DISTRIBUTION WIDTH 15.3 % (11.5-14.5); WHITE BLOOD COUNT 4.8 K/uL (4.8-10.8)
[2018-10-30 07:35] LABS: ALB/GLOB RATIO 1.4 (1.0-2.1); ALT/SGPT 19 U/L (9-52); AST/SGOT 15 U/L (14-36); BLOOD UREA NITROGEN 21 mg/dL (7-17); CALCIUM 8.6 mg/dl (8.6-10.4); GFR NON-AFRICAN AMERICAN > 60
[2018-10-30] MEDS: Divalproex 500 mg DR Tab PO SCH ×2 (09:41→18:06)
[2018-10-30] MEDS: diltiaZEM 240 mg/24 Hours CD Cap PO SCH (09:41)
[2018-10-30] MEDS: Enoxaparin 40 mg Syringe SC SCH (09:42)
--- NOTE | 2018-10-30 12:22 | CP.PCM.PN ---
Subjective - Date & Time of Evaluation Date of Evaluation: 10/30/18 Time of Evaluation: 11:00 - Subjective Subjective: clinically same Objective - Vital Signs/Intake and Output Vital Signs (last 24 hours): Temp Pulse Resp BP Pulse Ox 97.6 F 83 18 104/72 96 10/30/18 07:00 10/30/18 07:00 10/30/18 07:00 10/30/18 07:00 10/30/18 07:00 Intake and Output: 10/30/18 10/30/18 06:59 18:59 Intake Total 600 Balance 600 - Medications Medications: Current Medications Albuterol (Ventolin Hfa 90 Mcg/Actuation (8 G)) 1 puff INH RQ6 PRN PRN Reason: Wheezing Clopidogrel Bisulfate (Plavix) 75 mg PO DAILY [facility] Last Admin: 10/30/18 09:42 Dose: 75 mg Cyproheptadine HCl (Periactin) 4 mg PO DAILY [facility] Last Admin: 10/30/18 09:42 Dose: 4 mg Diltiazem HCl (Cardizem Cd) 240 mg PO DAILY [facility] Last Admin: 10/30/18 09:41 Dose: 240 mg Divalproex Sodium (Depakote Dr) 500 mg PO BID [facility] Last Admin: 10/30/18 09:41 Dose: 500 mg Enoxaparin Sodium (Lovenox) 40 mg SC DAILY [facility] Last Admin: 10/30/18 09:42 Dose: 40 mg Hydrochlorothiazide (Microzide) 12.5 mg PO DAILY [facility] Last Admin: 10/30/18 09:41 Dose: 12.5 mg Levetiracetam (Keppra) 1,000 mg PO BID [facility] Last Admin: 10/30/18 09:41 Dose: 1,000 mg Losartan Potassium (Cozaar) 50 mg PO DAILY [facility] Last Admin: 10/30/18 09:42 Dose: Not Given Pneumococcal Polyvalent Vaccine (Pneumovax 23 Vaccine) 0.5 ml IM .ONCE ONE Stop: 11/01/18 10:01 - Labs Labs: 10/30/18 07:12 10/30/18 07:12 PT 11.2 SECONDS (9.7-12.2) 10/29/18 01:00 INR 1.0 10/29/18 01:00 APTT 24 SECONDS (21-34) 10/29/18 01:00 - Constitutional Appears: Well - Head Exam Head Exam: ATRAUMATIC, NORMAL INSPECTION, NORMOCEPHALIC - Eye Exam Eye Exam: EOMI, Normal appearance, PERRL Pupil Exam: NORMAL ACCOMODATION, PERRL - ENT Exam ENT Exam: Mucous Membranes Moist, Normal Exam - Neck Exam Neck Exam: Full ROM, Normal Inspection. absent: Lymphadenopathy - Respiratory Exam Respiratory Exam: Decreased Breath Sounds - Cardiovascular Exam Cardiovascular Exam: REGULAR RHYTHM, +S1, +S2 - GI/Abdominal Exam GI & Abdominal Exam: Soft, Diminished Bowel Sounds - Rectal Exam Rectal Exam: Deferred
[2018-10-30] MEDS ORDERED: Potassium Chloride 20 mEq ER Tab PO ONE ×2 (15:00→18:00)
[2018-10-30 16:07] VITALS: BP 98/66; PULSE 77; RESP 20; TEMP 98.1; O2SAT 97
--- NOTE | 2018-10-30 21:40 | CP.PCM.CON ---
Past Patient History - Infectious Disease Hx of Infectious Diseases: None - Past Medical History & Family History Past Medical History?: Yes - Past Social History Smoking Status: Never Smoked - CARDIAC Hx Atrial Fibrillation: Yes Hx Congestive Heart Failure: Yes Hx Hypertension: Yes - PULMONARY Hx Respiratory Disorders: No Other/Comment: "MASS IN THROAT" - NEUROLOGICAL Hx Seizures: Yes Hx Transient Ischemic Attacks (TIA): Yes - HEENT Hx HEENT Problems: No - RENAL Hx Chronic Kidney Disease: No - HEMATOLOGICAL/ONCOLOGICAL Hx Blood Transfusions: No - INTEGUMENTARY Hx Dermatological Problems: No - MUSCULOSKELETAL/RHEUMATOLOGICAL Hx Falls: Yes - GASTROINTESTINAL Hx Gastrointestinal Disorders: No - GENITOURINARY/GYNECOLOGICAL Hx Genitourinary Disorders: No - PSYCHIATRIC Hx Substance Use: No - SURGICAL HISTORY Hx Appendectomy: Yes Hx Tonsillectomy: Yes - ANESTHESIA Hx Anesthesia: Yes Hx Anesthesia Reactions: No Meds Allergies/Adverse Reactions: Allergies Allergy/AdvReac Type Severity Reaction Status Date / Time Iodinated Contrast- Oral and Allergy Verified 10/28/18 23:40 IV Dye metronidazole [From Flagyl] Allergy SWELLING Verified 10/28/18 23:40 iv dye Allergy Uncoded 10/28/18 23:40 - Medications Medications: Current Medications Albuterol (Ventolin Hfa 90 Mcg/Actuation (8 G)) 1 puff INH RQ6 PRN PRN Reason: Wheezing Clopidogrel Bisulfate (Plavix) 75 mg PO DAILY [facility] Last Admin: 10/30/18 09:42 Dose: 75 mg Cyproheptadine HCl (Periactin) 4 mg PO DAILY [facility] Last Admin: 10/30/18 09:42 Dose: 4 mg Diltiazem HCl (Cardizem Cd) 240 mg PO DAILY [facility] Last Admin: 10/30/18 09:41 Dose: 240 mg Divalproex Sodium (Depakote Dr) 500 mg PO BID [facility] Last Admin: 10/30/18 18:06 Dose: 500 mg Enoxaparin Sodium (Lovenox) 40 mg SC DAILY [facility] Last Admin: 10/30/18 09:42 Dose: 40 mg Hydrochlorothiazide (Microzide) 12.5 mg PO DAILY [facility] Last Admin: 10/30/18 09:41 Dose: 12.5 mg Levetiracetam (Keppra) 1,000 mg PO BID [facility] Last Admin: 10/30/18 18:07 Dose: 1,000 mg Losartan Potassium (Cozaar) 50 mg PO DAILY [facility] Last Admin: 10/30/18 09:42 Dose: Not Given Pneumococcal Polyvalent Vaccine (Pneumovax 23 Vaccine) 0.5 ml IM .ONCE ONE Stop: 11/01/18 10:01 Results - Vital Signs Recent Vital Signs: Last Vital Signs Temp 98.1 F 10/30/18 16:00 Pulse 77 10/30/18 16:00 Resp 20 10/30/18 16:00 BP 98/66 L 10/30/18 16:00 Pulse Ox 97 10/30/18 16:00 - Labs Result Diagrams: 10/30/18 07:12 10/30/18 07:12 Labs: Laboratory Results - last 24 hr 10/29/18 10/30/18 10/30/18 21:42 07:12 07:12 WBC 4.8 RBC 4.25 Hgb 12.1 Hct 37.0 MCV 87.2 MCH 28.6 MCHC 32.8 L RDW 15.3 H Plt Count 210 MPV 8.5 Neut % (Auto) 37.2 L Lymph % (Auto) 49.5 H [place] % (Auto) 10.7 H Eos % (Auto) 2.4 Baso % (Auto) 0.2 Neut # (Auto) 1.8 Lymph # (Auto) 2.4 [place] # (Auto) 0.5 Eos # (Auto) 0.1 Baso # (Auto) 0.0 Sodium 142 Potassium 3.4 L Chloride 105 Carbon Dioxide 29 Anion Gap 11 BUN 21 H Creatinine 0.7 Est GFR ( Amer) > 60 Est GFR (Non-Af Amer) > 60 Random Glucose 105 Calcium 8.6 Total Bilirubin 0.3 AST 15 ALT 19 Alkaline Phosphatase 87 Total Creatine Kinase 60 CK-MB (Mass) 0.31 Troponin I < 0.0120 Total Protein 6.8 Albumin 4.0 Globulin 2.8 Albumin/Globulin Ratio 1.4
--- NOTE | 2018-10-30 21:41 | CP.PCM.PCO ---
Physician Communication Note - Physician Communication Note Physician Communication Note: Pt would like to sign out against medical advice.
[2018-11-01] MEDS ORDERED: Pneumococcal 23-Valent Vaccine IM ONE (10:00)
--- NOTE | 2018-11-01 12:58 | CARD ---
APPROVED REPORT Date of service: 10/29/2018 EKG Measurement Heart [id number] <Conclusion> Normal sinus rhythm Low voltage QRS Septal infarct, age undetermined Prolonged QT Abnormal ECG
--- NOTE | 2018-11-01 22:21 | CARD ---
APPROVED REPORT Date of service: 10/28/2018 EKG Measurement Heart [id number] <Conclusion> Normal sinus rhythm Minimal voltage criteria for LVH, may be normal variant Abnormal ECG
== END 2018-10-30 22:20 | disposition left against medical advice (07) | DRG 313 ==
LOC: C.ER 23:29 → C.5S 10-29 03:18
PROVIDERS: ADMIT Internal Medicine Nephrology; ATTEND Internal Medicine Nephrology
DX: R07.89 Other chest pain (principal); I11.0 Hypertensive heart disease with heart failure; I50.9 Heart failure, unspecified; I48.91 Unspecified atrial fibrillation; N76.0 Acute vaginitis

== ENCOUNTER 2018-12-16 16:02 | Emergency (ER) | payer MEDICARE, OTHER ==
[2018-12-16 16:14] VITALS: BMI 31.7
[2018-12-16] MEDS ORDERED: Sodium Chloride 0.9% 1,000 ML IV STA (17:34)
--- NOTE | 2018-12-16 18:07 | C.PDOC ---
History Of Present Illness 53 year old female presents to ED with complaint of upper back pain. Patient states that the pain radiates to her chest and is worse with movement. She was seen by her PMD and checked for urine infection that was negative. She denies weakness, numbness, productive cough, SOB, and wheezing. Time Seen by Provider: 12/16/18 16:29 Chief Complaint (Nursing): Back Pain History Per: Patient History/Exam Limitations: no limitations Onset/Duration Of Symptoms: Unknown Current Symptoms Are (Timing): Still Present Quality Of Discomfort: "Pain" Severity: None Associated Symptoms: denies: New Weakness, New Numbness Exacerbating Factor(s): Movement Past Medical History Reviewed: Historical Data, Nursing Documentation, Vital Signs Vital Signs: Last Vital Signs Temp 97.9 F 12/16/18 16:13 Pulse 109 H 12/16/18 16:33 Resp 20 12/16/18 16:33 BP 137/101 H 12/16/18 16:33 Pulse Ox 100 12/16/18 16:33 - Medical History PMH: Atrial Fibrillation, CHF, HTN, Seizures, TIA Denies: Chronic Kidney Disease Surgical History: Appendectomy, Tonsillectomy - [facility] INSERTION OF INFUSION DEV INTO SUP VENA CAVA, PERC APPROACH (10/23/15) Family History: States: Unknown Family Hx - Social History Hx Tobacco Use: No Hx Alcohol Use: No Hx Substance Use: No - Immunization History Hx Tetanus Toxoid Vaccination: No Hx Influenza Vaccination: No Hx Pneumococcal Vaccination: No Review Of Systems Constitutional: Negative for: Fever, Chills, Weakness Cardiovascular: Positive for: Chest Pain Respiratory: Negative for: Cough, Shortness of Breath, Sputum, Wheezing Musculoskeletal: Positive for: Back Pain (upper back) Neurological: Negative for: Weakness, Numbness Physical Exam - Physical Exam Appears: Non-toxic, Other (uncomfortable) Skin: Normal Color, Warm, Dry Head: Atraumatic, Normacephalic Eye(s): bilateral: Normal Inspection Neck: Normal ROM, No Midline Cervical Tenderness, No Paracervical Tenderness, Supple Chest: Symmetrical, No Deformity, Tenderness (anterior chest) Cardiovascular: Rhythm Regular, No Murmur, Other (tachycardic) Respiratory: No Accessory Muscle Use, No Rales, No Rhonchi, No Wheezing Gastrointestinal/Abdominal: Soft, No Tenderness Back: Vertebral Tenderness (T-spine), Muscle Spasm (Tspine area), Paraspinal Tenderness (T-spine area b/l) Extremity: Capillary Refill (<2 seconds) Pulses: Left Radial: Normal, Right Radial: Normal Neurological/Psych: Oriented x3, Normal Speech, Normal Cognition, Normal Motor, Normal Sensation, Other (ambulatory) ED Course And Treatment - Laboratory Results Result Diagrams: 12/16/18 18:08 12/16/18 18:08 ECG: Interpreted By Me, Viewed By Me ECG Rhythm: Sinus Tachycardia, ST/T Changes Rate From EC O2 Sat by Pulse Oximetry: 100 (in RA) - Radiology CXR: Interpreted by Me, Viewed By Me CXR Interpretation: Yes: No Acute Disease Progress Note: EKG and CXR ordered for patient. Labs ordered with cardiac enzymes, d-dimer, and UA. Patient given IV fluids and Toradol. Disposition - Disposition Referrals: Lm Romero DO [Staff Provider] - Disposition: HOME/ ROUTINE Disposition Time: 19:13 Condition: STABLE Additional Instructions: Follow up with your PMD within 1-2 days. Return to ED if feel worse. Prescriptions: Lidocaine 5% [Lidoderm] 1 patch TP DAILY #30 patch Naproxen [Naprosyn] 1 tab PO BID PRN #25 tab PRN Reason: Pain Methocarbamol [Robaxin-750] 750 mg PO TID #30 tab Instructions: Upper Back Pain (DC) Forms: [facility] (Lao) - Clinical Impression Clinical Impression: Thoracic back pain - PA / DINING ROOM HOST / Resident Statement / has reviewed & agrees with the documentation as recorded. (Patricia Dey) - Scribe Statement The provider has reviewed the documentation as recorded by the Scribe (Patricia Dey) All medical record entries made by the Scribe were at my direction and personally dictated by me. I have reviewed the chart and agree that the record accurately reflects my personal performance of the history, physical exam, medical decision making, and the department course for this patient. I have also personally directed, reviewed, and agree with the discharge instructions and disposition.
[2018-12-16 18:13] LABS: BASO % 0.3 % (0.0-2.0); EOS % 0.4 % (0.0-4.0); LYMPH # 1.2 K/uL (1.0-4.3); LYMPH % 24.1 % (20.0-40.0); MEAN CELL VOLUME 85.8 fL (81.0-99.0); MEAN CORPUSCULAR HEMOGLOBIN 28.2 pg (27.0-31.0); MEAN CORPUSCULAR HGB CONC 32.8 g/dL (33.0-37.0); MEAN PLATELET VOLUME 8.1 fL (7.2-11.7); MONO # 0.5 K/uL (0.0-0.8); MONO % 9.2 % (0.0-10.0); NEUT # 3.4 K/uL (1.8-7.0); NRBC % 0.2 % (0.0-2.0); RBC 4.62 Mil/uL (3.80-5.20); RED CELL DISTRIBUTION WIDTH 15.6 % (11.5-14.5); WHITE BLOOD COUNT 5.2 K/uL (4.8-10.8)
[2018-12-16 18:17] LABS: SQUAMOUS EPITHIAL 6 /hpf (0-5); URINE BILIRUBIN NEGATIVE (NEGATIVE); URINE BLOOD 1+ (NEGATIVE); URINE CLARITY Hazy (Clear); URINE COLOR Yellow (YELLOW); URINE GLUCOSE (UA) NORMAL (Normal); URINE HYALINE CAST >20 /lpf (0-2); URINE LEUKOCYTE ESTERASE NEG Leu/uL (Negative); URINE PROTEIN NEGATIVE (NEGATIVE); URINE UROBILINOGEN NORMAL mg/dL (0.2-1.0)
[2018-12-16] MEDS ORDERED: Sodium Chloride 0.9% 1,000 ML ONE (18:22)
[2018-12-16 18:27] LABS: ALB/GLOB RATIO 1.4 (1.0-2.1); ALBUMIN 4.7 g/dL (3.5-5.0); AST/SGOT 17 U/L (14-36); BLOOD UREA NITROGEN 31 mg/dL (7-17); CALCIUM 10.5 mg/dl (8.6-10.4); GFR NON-AFRICAN AMERICAN > 60
[2018-12-16 18:29] LABS: ALT/SGPT < 6 U/L (9-52)
--- NOTE | 2018-12-16 18:32 | RAD ---
HISTORY: upper back pain COMPARISON: Chest x-ray performed 10/29/18 TECHNIQUE: Chest, one view. FINDINGS: LUNGS: Coarsened interstitial markings may be chronic. No focal consolidation. Please note that chest x-ray has limited sensitivity for the detection of pulmonary masses. PLEURA: No significant pleural effusion identified. No definite pneumothorax . CARDIOVASCULAR: Heart size appears within normal limits. Faint atherosclerotic calcifications present. OSSEOUS STRUCTURES: Degenerative changes of the spine including confluent anterior osteophyte formation. VISUALIZED UPPER ABDOMEN: Elevation of the right hemidiaphragm. OTHER FINDINGS: None. IMPRESSION: Coarsened interstitial markings may be chronic.
[2018-12-16 18:35] LABS: PARTIAL THROMBOPLASTIN TIME 33 SECONDS (21-34); PROTHROMBIN TIME 11.3 SECONDS (9.7-12.2)
[2018-12-16 18:47] LABS: CK-MB 0.37 ng/mL (0.0-3.38)
[2018-12-16 18:51] LABS: D DIMER < 200 ng/mlDDU (0-243)
[2018-12-16] MEDS ORDERED: Potassium Chloride 20 mEq/15 ml LIQ UD PO STA (19:10)
[2018-12-16] MEDS ORDERED: Lidocaine 5% Patch TD STA (19:11)
[2018-12-16] MEDS ORDERED: Lidocaine 5% Patch TD ONE (19:45)
[2018-12-16] MEDS ORDERED: Potassium Chloride 20 mEq ER Tab PO ONE (19:46)
[2018-12-16 19:53] VITALS: BP 138/88; PULSE 81; RESP 16; TEMP 98.2; O2SAT 99
--- NOTE | 2018-12-17 23:30 | CARD ---
APPROVED REPORT Date of service: 12/16/2018 EKG Measurement Heart [id number] <Conclusion> Sinus tachycardia Possible Left atrial enlargement Septal infarct, age undetermined Abnormal ECG
== END 2018-12-16 19:56 | disposition home or self-care (01) ==
LOC: C.ER 16:02
DX: M54.6 Pain in thoracic spine (principal)
CPT/HCPCS: 71045; 80053; 81001; 81025; 82550; 82553; 84484; 85025; 85378; 85610; 85730; 93005; 96361; 96374; 99285; J1885; J7030

== ENCOUNTER 2018-12-23 13:14 | Outpatient (CLI) | payer MEDICARE, OTHER | END 2018-12-23 13:15 | disposition home or self-care (01) | LOC: C.USIC 13:14 ==

== ENCOUNTER 2019-01-05 12:35 | Outpatient (CLI) | payer MEDICARE, OTHER | END 2019-01-05 12:36 | disposition home or self-care (01) | LOC: C.USIC 12:35 | DX: K76.89 Other specified diseases of liver (principal) ==